=== PATIENT | male | born 1950 | race Caucasian/White ===

== ENCOUNTER 2017-02-24 08:00 | Outpatient (CLI) | payer MEDICARE, OTHER ==
[2017-02-24 13:01] LABS: BASOPHILS % (AUTO) 0.6 %; EOSINOPHILS # (AUTO) 0.5 10^3/uL (0.0-0.7); EOSINOPHILS % (AUTO) 7.1 %; HCT - HEMATOCRIT 40.2 % (42.0-52.0); HGB - HEMOGLOBIN 13.7 g/dL (14.0-18.0); LYMPHOCYTES # (AUTO) 2.4 10^3/uL (1.5-3.5); LYMPHOCYTES % (AUTO) 35.5 %; MEAN CORPUSCULAR HGB CONC 34.1 g/dL (32.0-36.0); MEAN CORPUSCULAR VOLUME 93.9 fL (80.0-94.0); MEAN PLATELET VOLUME 9.4 fL (7.4-11.4); MONOCYTES # (AUTO) 0.8 10^3/uL (0.0-1.0); MONOCYTES % (AUTO) 12.2 %; NEUTROPHILS % (AUTO) 44.6 %; NUCLEATED RED BLOOD CELLS AUTO 0.1 /100WBC; RED BLOOD COUNT 4.28 10^6/uL (4.70-6.10); RED CELL DISTRIBUTION WIDTH 14.1 % (12.0-15.0); UNCORRECTED WHITE BLOOD COUNT 6.7 x10^3/uL; WHITE BLOOD COUNT 6.7 x10^3/uL (4.8-10.8)
[2017-02-24 13:14] LABS: ALBUMIN/GLOBULIN RATIO 1.4 (1.0-2.2); BUN - BLOOD UREA NITROGEN 21 mg/dL (6-20); CALCIUM 9.2 mg/dL (8.5-10.3); CARBON DIOXIDE - CO2 27 mmol/L (21-32); CHLORIDE 104 mmol/L (101-111); CHOL/HDL RATIO 2.8 (<5.0); CHOLESTEROL 170 mg/dL; GFR - MDRD 75 (>89); GLUCOSE 94 mg/dL (70-100); HDL CHOLESTEROL 60 mg/dL; LDL/HDL RATIO 1.6 (<3.6); POTASSIUM 4.5 mmol/L (3.5-5.0); SODIUM 138 mmol/L (135-145); TOTAL PROTEIN 7.2 g/dL (6.7-8.2); TRIGLYCERIDES 62 mg/dL; VLDL CHOLESTEROL 12 mg/dL
== END 2017-02-24 08:01 | disposition home or self-care (01) ==
LOC: LAB.WCP 08:00
PROVIDERS: ATTEND Family Medicine
DX: I47.1 Supraventricular tachycardia (principal)
CPT/HCPCS: 36415; 80053; 80061; 85025; G0103; 84153

== ENCOUNTER 2017-03-26 08:38 | Outpatient (CLI) | payer MEDICARE, OTHER ==
--- NOTE | 2017-03-26 10:28 | Ultrasound Report ---
ULTRASOUND OF THE RIGHT AXILLA: 03/26/2017 CLINICAL HISTORY: A 66-year-old male who has a possible soft palpable mass in the right axilla. TECHNIQUE: Real-time scanning was performed with business banking representative static images obtained. Examination was performed both by the industrial maintenance technician and Dr. Weaver. FINDINGS: No mass was encountered in the right axilla. There was a small benign-appearing lymph nod e noted. It was oval-shaped and had a hyperechoic hilum. It is of no clinical concern. Examination is negative for a significant mass. No lipoma was seen. No other lesion was noted. Fin ding may represent mild asymmetrical hypertrophy of one of the muscles in and about the right axilla. If patient notes any increase in size of the lesion, an MRI could be obtained for further evaluatio n. IMPRESSION: NEGATIVE RIGHT AXILLARY ULTRASOUND. FINDING OF CONCERN MOST LIKELY REPRESENTS MINIMAL A SYMMETRICAL HYPERTROPHY OF ONE OF THE MUSCLES IN AND ABOUT THE RIGHT AXILLA, DISCUSSED ABOVE. JOB #: [id number] EXT JOB #:[id number]
== END 2017-03-26 08:39 | disposition home or self-care (01) ==
LOC: DI 08:38
PROVIDERS: ATTEND Family Medicine
DX: R22.9 Localized swelling, mass and lump, unspecified (principal)
CPT/HCPCS: 76882

== ENCOUNTER 2017-10-15 08:00 | Outpatient (CLI) | payer MEDICARE, OTHER ==
[2017-10-15 12:54] LABS: BASOPHILS # (AUTO) 0.1 10^3/uL (0.0-0.1); BASOPHILS % (AUTO) 1.1 %; EOSINOPHILS # (AUTO) 0.4 10^3/uL (0.0-0.7); EOSINOPHILS % (AUTO) 5.9 %; HGB - HEMOGLOBIN 15.6 g/dL (14.0-18.0); LYMPHOCYTES # (AUTO) 2.4 10^3/uL (1.5-3.5); LYMPHOCYTES % (AUTO) 36.2 %; MEAN CORPUSCULAR HEMOGLOBIN 32.2 pg (27.0-31.0); MEAN CORPUSCULAR HGB CONC 34.5 g/dL (32.0-36.0); MEAN CORPUSCULAR VOLUME 93.4 fL (80.0-94.0); MEAN PLATELET VOLUME 9.7 fL (7.4-11.4); MONOCYTES # (AUTO) 0.7 10^3/uL (0.0-1.0); MONOCYTES % (AUTO) 10.3 %; NEUTROPHILS # (AUTO) 3.1 10^3/uL (1.5-6.6); NEUTROPHILS % (AUTO) 46.5 %; PLT - PLATELET COUNT 221 10^3/uL (130-450); RED BLOOD COUNT 4.83 10^6/uL (4.70-6.10); RED CELL DISTRIBUTION WIDTH 13.3 % (12.0-15.0); WHITE BLOOD COUNT 6.6 x10^3/uL (4.8-10.8)
[2017-10-15 13:14] LABS: ALBUMIN 4.4 g/dL (3.2-5.5); ALBUMIN/GLOBULIN RATIO 1.3 (1.0-2.2); ALKALINE PHOSPHATASE 50 IU/L (42-121); ALT ALANINE AMINOTRANSFERASE 30 IU/L (10-60); AST ASPARTATE AMINOTRANSFERASE 27 IU/L (10-42); BILIRUBIN,TOTAL 0.5 mg/dL (0.2-1.0); BUN - BLOOD UREA NITROGEN 24 mg/dL (6-20); CALCIUM 9.2 mg/dL (8.5-10.3); CARBON DIOXIDE - CO2 27 mmol/L (21-32); CHLORIDE 105 mmol/L (101-111); CREATININE 1.1 mg/dL (0.6-1.2); GFR - MDRD 67 (>89); GLUCOSE 91 mg/dL (70-100); SODIUM 136 mmol/L (135-145); TOTAL PROTEIN 7.7 g/dL (6.7-8.2)
[2017-10-15 13:21] LABS: THYROID STIMULATING HORMONE 2.29 uIU/mL (0.34-5.60)
== END 2017-10-15 08:01 ==
LOC: LAB.WCP 08:00
PROVIDERS: ATTEND Family Medicine
DX: R53.83 Other fatigue (principal); K30 Functional dyspepsia; M70.72 Other bursitis of hip, left hip; M13.861 Other specified arthritis, right knee; M25.571 Pain in right ankle and joints of right foot; R25.1 Tremor, unspecified; R41.3 Other amnesia; D48.5 Neoplasm of uncertain behavior of skin; I71.2 Thoracic aortic aneurysm, without rupture; G47.9 Sleep disorder, unspecified; I42.9 Cardiomyopathy, unspecified; I47.1 Supraventricular tachycardia
CPT/HCPCS: 36415; 80053; 82607; 83921; 84443; 85025

== ENCOUNTER 2017-10-23 09:00 | Outpatient (CLI) | payer MEDICARE, OTHER ==
[2017-10-26 12:03] LABS: H. PYLORIS ANTIGEN STL NEGATIVE (Negative)
== END 2017-10-23 09:01 | disposition home or self-care (01) ==
LOC: LAB.R 09:00
PROVIDERS: ATTEND Family Medicine
DX: K30 Functional dyspepsia (principal)
CPT/HCPCS: 87338

== ENCOUNTER 2018-01-10 19:38 | Outpatient (CLI) | payer MEDICARE, OTHER | END 2018-01-10 19:39 | disposition home or self-care (01) | LOC: SC 19:38 | PROVIDERS: ATTEND Internal Medicine Pulmonary Disease | DX: G47.31 Primary central sleep apnea (principal); G47.33 Obstructive sleep apnea (adult) (pediatric); G47.61 Periodic limb movement disorder | CPT/HCPCS: 95810 ==

== ENCOUNTER 2018-02-15 09:13 | Outpatient (CLI) | payer MEDICARE, OTHER | END 2018-02-15 09:14 | disposition home or self-care (01) | LOC: SC 09:13 | PROVIDERS: ATTEND Nurse Practitioner Family | DX: G47.31 Primary central sleep apnea (principal); G47.61 Periodic limb movement disorder; I49.9 Cardiac arrhythmia, unspecified | CPT/HCPCS: 99215 ==

== ENCOUNTER 2018-06-30 14:02 | Outpatient (CLI) | payer MEDICARE, OTHER | END 2018-06-30 14:03 | disposition home or self-care (01) | LOC: SC 14:02 | PROVIDERS: ATTEND Nurse Practitioner Family | DX: G47.31 Primary central sleep apnea (principal); G47.33 Obstructive sleep apnea (adult) (pediatric) | CPT/HCPCS: 99215; G0463; 99212 ==

== ENCOUNTER 2018-08-02 09:47 | Outpatient (CLI) | payer MEDICARE, OTHER | END 2018-08-02 09:48 | disposition home or self-care (01) | LOC: SC 09:47 | PROVIDERS: ATTEND Nurse Practitioner Family | DX: G47.31 Primary central sleep apnea (principal); G47.33 Obstructive sleep apnea (adult) (pediatric) | CPT/HCPCS: 99214; G0463; 99212 ==

== ENCOUNTER 2018-09-02 10:43 | Outpatient (CLI) | payer MEDICARE, OTHER | END 2018-09-02 10:44 | disposition home or self-care (01) | LOC: SC 10:43 | PROVIDERS: ATTEND Nurse Practitioner Family | DX: G47.33 Obstructive sleep apnea (adult) (pediatric) (principal) | CPT/HCPCS: 99214; G0463; 99212 ==

== ENCOUNTER 2018-09-13 19:32 | Outpatient (CLI) | payer MEDICARE, OTHER | END 2018-09-13 19:33 | disposition home or self-care (01) | LOC: SC 19:32 | PROVIDERS: ATTEND Internal Medicine Pulmonary Disease | DX: G47.33 Obstructive sleep apnea (adult) (pediatric) (principal) | CPT/HCPCS: 95811 ==

== ENCOUNTER 2018-09-16 08:00 | Outpatient (CLI) | payer MEDICARE, OTHER ==
[2018-09-16 13:17] LABS: BASOPHILS # (AUTO) 0.1 10^3/uL (0.0-0.1); BASOPHILS % (AUTO) 0.9 %; EOSINOPHILS # (AUTO) 0.3 10^3/uL (0.0-0.7); EOSINOPHILS % (AUTO) 4.3 %; HGB - HEMOGLOBIN 16.4 g/dL (14.0-18.0); LYMPHOCYTES # (AUTO) 2.2 10^3/uL (1.5-3.5); LYMPHOCYTES % (AUTO) 29.6 %; MEAN CORPUSCULAR HEMOGLOBIN 31.9 pg (27.0-31.0); MEAN CORPUSCULAR HGB CONC 33.8 g/dL (32.0-36.0); MEAN CORPUSCULAR VOLUME 94.4 fL (80.0-94.0); MEAN PLATELET VOLUME 10.1 fL (7.4-11.4); MONOCYTES # (AUTO) 0.8 10^3/uL (0.0-1.0); NEUTROPHILS % (AUTO) 54.2 %; PLT - PLATELET COUNT 238 10^3/uL (130-450); RED BLOOD COUNT 5.14 10^6/uL (4.70-6.10); RED CELL DISTRIBUTION WIDTH 14.2 % (12.0-15.0); WHITE BLOOD COUNT 7.4 x10^3/uL (4.8-10.8)
[2018-09-16 13:44] LABS: ALBUMIN 4.3 g/dL (3.2-5.5); ALBUMIN/GLOBULIN RATIO 1.3 (1.0-2.2); ALKALINE PHOSPHATASE 55 IU/L (42-121); ALT ALANINE AMINOTRANSFERASE 18 IU/L (10-60); AST ASPARTATE AMINOTRANSFERASE 19 IU/L (10-42); BILIRUBIN,TOTAL 0.9 mg/dL (0.2-1.0); BUN - BLOOD UREA NITROGEN 26 mg/dL (6-20); CARBON DIOXIDE - CO2 28 mmol/L (21-32); CHLORIDE 101 mmol/L (101-111); CHOL/HDL RATIO 2.5 (<5.0); CHOLESTEROL 175 mg/dL; CREATININE 1.1 mg/dL (0.6-1.2); GFR - MDRD 67 (>89); GLUCOSE 90 mg/dL (70-100); HDL CHOLESTEROL 70 mg/dL; LDL CHOLESTEROL,CALCULATED 96 mg/dL; LDL/HDL RATIO 1.4 (<3.6); SODIUM 136 mmol/L (135-145); TOTAL PROTEIN 7.5 g/dL (6.7-8.2); VLDL CHOLESTEROL 9 mg/dL
== END 2018-09-16 23:59 | disposition home or self-care (01) ==
LOC: LAB.WCP 08:00
PROVIDERS: ATTEND Family Medicine
DX: E78.5 Hyperlipidemia, unspecified (principal); Z12.5 Encounter for screening for malignant neoplasm of prostate; R53.83 Other fatigue
CPT/HCPCS: 36415; 80053; 80061; 84443; 85025; G0103; 83721; 84153

== ENCOUNTER 2018-10-18 06:13 | Outpatient (CLI) | payer MEDICARE, OTHER | END 2018-10-18 06:14 | disposition critical access hospital (66) | LOC: EMS 06:13 | PROVIDERS: ATTEND Surgery | DX: K59.00 Constipation, unspecified (principal) | CPT/HCPCS: A0425; A0429 ==

== ENCOUNTER 2018-10-18 06:33 | Inpatient (IN) | payer MEDICARE, OTHER ==
[2018-10-18] MEDS ORDERED: SALINE ENEMA 133 ML BOTTLE RC STA (07:33)
[2018-10-18] MEDS ORDERED: METHYLNALTREXONE 12 MG/0.6 ML VIAL SUBQ ONE ×2 (07:38→07:40)
[2018-10-18] MEDS ORDERED: oxyCODONE 5 MG TABLET PO STA (07:46)
[2018-10-18 07:54] LABS: BASOPHILS # (AUTO) 0.1 10^3/uL (0.0-0.1); BASOPHILS % (AUTO) 0.7 %; EOSINOPHILS # (AUTO) 0.3 10^3/uL (0.0-0.7); EOSINOPHILS % (AUTO) 3.3 %; HGB - HEMOGLOBIN 10.8 g/dL (14.0-18.0); LYMPHOCYTES # (AUTO) 1.2 10^3/uL (1.5-3.5); LYMPHOCYTES % (AUTO) 12.8 %; MEAN CORPUSCULAR HGB CONC 33.8 g/dL (32.0-36.0); MEAN CORPUSCULAR VOLUME 94.9 fL (80.0-94.0); MONOCYTES # (AUTO) 0.9 10^3/uL (0.0-1.0); MONOCYTES % (AUTO) 9.4 %; NEUTROPHILS % (AUTO) 73.8 %; PLT - PLATELET COUNT 273 10^3/uL (130-450); RED BLOOD COUNT 3.36 10^6/uL (4.70-6.10); RED CELL DISTRIBUTION WIDTH 13.9 % (12.0-15.0); WHITE BLOOD COUNT 9.4 x10^3/uL (4.8-10.8)
[2018-10-18 07:59] LABS: CALCIUM 8.9 mg/dL (8.5-10.3)
--- NOTE | 2018-10-18 08:00 | ED Physician Documentation ---
History of Present Illness - Stated complaint Stated Complaint: CONSTIPATION - Chief complaint Chief Complaint: Abd Pain - Additonal information Additional information: hx from pt and 67 male s/p right total knee 6 days ago at [facility] to ER with several concerns primarily here for constipation believed 2/2 his narcotics he has crampy lower abd pain he tried disimpacting himself as far up as he could reach he has cp soa cough congestion and hemoptysis is not on post op Lovenox he is acting aggressive and angry and a bit confused which is atypical for him and attributes to the meds no fever no NA no urinary sx Review of Systems Constitutional: denies: Fever, Chills Cardiac: reports: Chest pain / pressure Respiratory: reports: Dyspnea, Cough GI: reports: Abdominal Pain, Constipation. denies: Nausea, Vomiting Musculoskeletal: reports: Extremity pain (post op). denies: Neck pain, Back pain Neurologic: denies: Headache Endocrine: denies: Easy bruising / bleeding Immunocompromised: denies: Immunocompromised PD PAST MEDICAL HISTORY - Past Medical History Past Medical History: Yes Cardiovascular: High cholesterol - Past Surgical History Past Surgical History: Yes - Present Medications Home Medications: Ambulatory Orders Medication Instructions Recorded Confirmed Atorvastatin Calcium [Lipitor] 20 mg PO DAILY 04/07/15 10/18/18 Carvedilol [Coreg] 6.25 mg PO DAILY 04/07/15 10/18/18 Celecoxib [CeleBREX] 200 mg PO BID 10/18/18 10/18/18 Losartan Potassium 25 mg PO DAILY 10/18/18 10/18/18 Oxycodone HCl/Acetaminophen 1 tab PO Q4H PRN 10/18/18 10/18/18 [Percocet 10-325 mg Tablet] hydrOXYzine pamoate [Hydroxyzine 25 mg PO TID PRN 10/18/18 10/18/18 Pamoate] traMADol [Ultram] 50 mg PO Q6H PRN 10/18/18 10/18/18 - Allergies Allergies/Adverse Reactions: Allergies Allergy/AdvReac Type Severity Reaction Status Date / Time No Known Drug Allergies Allergy Verified 10/18/18 06:43 - Social History Does the pt smoke?: No Smoking Status: Never smoker Does the pt drink ETOH?: Yes Does the pt have substance abuse?: No - Immunizations Immunizations are current?: No Immunizations: TDAP >10years/unknown - POLST Patient has POLST: No PD ED PE NORMAL - Vitals Vital signs reviewed: Yes - General General: Alert and oriented X 3 - HEENT HEENT: PERRL - Neck Neck: Supple, no meningeal sign - Cardiac Cardiac: RRR - Respiratory Respiratory: Other (coare cough lungs clear) - Abdomen Abdomen: Soft, Other (lower abd TTP s peritoneal sx) - Male Male : Deferred - Derm Derm: Normal color - Extremities Extremities: Other (both legs in compression stockings) - Neuro Neuro: Alert and oriented X 3, Other ( states not acting normally but he is able to carry on a conversation) Results - Vitals Vitals: Vital Signs - 24 hr 10/18/18 10/18/18 06:41 09:27 Temperature 36.2 C L Heart Rate 83 86 Respiratory 18 22 Rate Blood Pressure 147/81 H 132/77 H O2 Saturation 97 97 Oxygen O2 Source Room air - EKG (time done) 0759 Rate: Rate (enter#) (79) Rhythm: NSR [place]: Normal Intervals: Normal ME Ischemia: Normal ST segments - Labs Labs: Laboratory Tests 10/18/18 10/18/18 10/18/18 07:40 07:40 08:40 WBC 9.4 RBC 3.36 L Hgb 10.8 L Hct 31.9 L MCV 94.9 H MCH 32.0 H MCHC 33.8 RDW 13.9 Plt Count 273 MPV 8.0 Neut # (Auto) 7.0 H Lymph # (Auto) 1.2 L [place] # (Auto) 0.9 Eos # (Auto) 0.3 Baso # (Auto) 0.1 Absolute Nucleated RBC 0.00 Nucleated RBC % 0.0 Sodium 133 L Potassium 4.2 Chloride 100 L Carbon Dioxide 23 Anion Gap 10.0 BUN 26 H Creatinine 1.0 Estimated GFR (MDRD) 74 L Glucose 105 H Calcium 8.9 Urine Color YELLOW Urine Clarity CLEAR Urine pH 6.0 Ur Specific [place] 1.015 Urine Protein NEGATIVE Urine Glucose (UA) NEGATIVE Urine Ketones TRACE Urine Occult Blood NEGATIVE Urine Nitrite NEGATIVE Urine Bilirubin NEGATIVE Urine Urobilinogen 0.2 (NORMAL) Ur Leukocyte Esterase NEGATIVE Ur Microscopic Review NOT INDICATED Urine Culture Comments NOT INDICATED - Rads (name of study) CTPA Radiology: See rad report (suboptimal contrast timing but per rad CT shos PEs vida lower lobes and infiltrate or infarct RLL - and also a 4 cm AAA, and a small calcified spleen) PD MEDICAL DECISION MAKING - ED course ED course: + PE (at least highly probable on suboptimal CT in a pt with a high pretest probability) gave jose PE severity index score is 138 (counting report of not acting normally as AMS) which is class V high risk called hospitalist for admit at [address] Arnold at 1030 AM also updated ortho Dr Butler and he had large BM after meds in ER Departure - Departure Disposition: ED Place in Observation Clinical Impression: Constipation Pulmonary emboli Qualifiers: Pulmonary embolism type: other Chronicity: acute Acute cor pulmonale presence: without acute cor pulmonale Qualified Code(s): I26.99 - Other pulmonary embolism without acute cor pulmonale Condition: Fair Discharge Date/Time: 10/18/18 11:30
[2018-10-18] MEDS ORDERED: IOVERSOL 320 100 ML VIAL IVP ONE ×2 (08:03→08:42)
--- NOTE | 2018-10-18 09:14 | CT Report ---
Reason: cp soa hemoptysis s/p total knee Procedure Date: 10/18/2018 Accession Number: [id number] / [id number] Procedure: CT - Chest Angio (PE) CPT Code: FULL RESULT: EXAM: CT ANGIOGRAM CHEST EXAM DATE: 10/18/2018 08:40 AM. CLINICAL HISTORY: Cp soa hemoptysis s/p total knee. COMPARISON: None. TECHNIQUE: Routine helical imaging was performed through the chest in the pulmonary arterial phase. IV Contrast: [id number] 80ML. Reconstructions: Coronal 3-D MIP reconstructions.Sagittal and coronal. In accordance with CT protocol optimization, one or more of the following dose reduction techniques were utilized for this exam: automated exposure control, adjustment of mA and/or KV based on patient size, or use of iterative reconstructive technique. FINDINGS: Pulmonary Arteries: Diagnostic quality: Suboptimal through the segmental arteries. Contrast enhancement is not optimal. Probable emboli in the right lower lobe segmental arteries. Probable emboli left lower lobe segmental arteries. RV/LV is within normal limits. There is no interventricular septal bowing. There is no reflux of contrast material in the IVC. Lungs/Pleura: Area of consolidation or infarct right lower lobe posterior segment. By basilar atelectasis. Mediastinum: Cardiomegaly. No pericardial effusion. No significant adenopathy. Coronary artery calcifications. Thoracic Aorta: Enlarged 4.1 cm Upper Abdomen: Small spleen with calcifications Other: None. IMPRESSION: 1. Probable pulmonary emboli and right lower lobe and left lower lobe segmental arteries. Contrast enhancement was not optimal. 2. Infiltrate or infarct in right lower lobe posterior segment. 3. Ascending aortic aneurysm 4.1 cm. 4. Small spleen with calcifications RADIA The above findings were discussed with Keisha Neville by Dr. Alondra Castillo at 09:13 hrs on 10/18/18.
[2018-10-18 09:33] LABS: BILIRUBIN,URINE NEGATIVE (NEGATIVE); GLUCOSE, URINE (UA) NEGATIVE (NEGATIVE); KETONES,URINE (UA) TRACE mg/dL (NEGATIVE); LEUKOCYTE ESTERASE, URINE NEGATIVE (NEGATIVE); NITRITE,URINE NEGATIVE (NEGATIVE); OCCULT BLOOD,URINE NEGATIVE (NEGATIVE); PROTEIN,URINE NEGATIVE (NEGATIVE); UROBILINOGEN,URINE 0.2 (NORMAL) E.U./dL (NORMAL)
[2018-10-18 09:34] LABS: CLARITY,URINE CLEAR (CLEAR)
[2018-10-18] MEDS ORDERED: ENOXAPARIN 100 MG/ML SYRINGE SUBQ STA (09:40)
[2018-10-18] MEDS ORDERED: ONDANSETRON ODT 4 MG TABLET TL PRN (10:38)
[2018-10-18] MEDS ORDERED: ONDANSETRON 4 MG/2 ML VIAL IVP PRN (10:38)
--- NOTE | 2018-10-18 10:56 | HISTORY & PHYSICAL EXAMINATION ---
Chief Complaint - Chief Complaint Chief Complaint: Constipation History of Present Illness - Admitted From Admitted From:: Home/ER - History Obtained From Records Reviewed: [facility] History obtained from: Patient, , Dr. 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 Butler 6 days ago. He comes in because of medicines he has been using for pain relief and have given him constipation and is miserable with it. However, while discussing this with the ER doctor, a review of systems was done and he discusses cough, shortness of breath, hemoptysis. He keeps on telling me that he does not have chest pain. There is no sharp pleuritic stabbing pain. He is a little worried because he feels like "I got dementia this week". He cannot think clearly. He cannot speak clearly. And he is utterly, early measurable with the right knee pain, right thigh pain, and the constipation. He says the pain and discomfort is so bad he just cannot think straight. On his med list there is no postoperative anticoagulation. His temperature was 36.2, pulse 83, blood pressure 147/81, respirations 18 and is 97% on room air. He has no history of cancer, COPD, but his altered mental status is concerning. describes him to be belligerent, personality change after surgery that she attributed to the medications. CT of the chest with angiogram reveals pulmonary emboli in the right lower lobe and left lower lobe segmental arteries. Infiltrate or infarct in the right lower lobe posterior s egment. A sending aortic aneurysm of 4.1 cm. Small spleen with calcifications. Pulmonary embolism severity index is positive for male sex with 10 points, age gives him 68 points, and altered mental status given 60 points. CHF may or may not need to be added to that as well but with the three scoring criteris, his total score is 138. That puts him at a class V, high risk. He is now placed in observation for telemetry monitoring, and starting his anticoagulation. History - Past Medical History Cardiovascular: reports: Congestive heart failure (Idiopathic cardiomyopathy. EF 50% Echo 10/17, 50% 11/2013, 55% 12/2014, 50% 04/20, 50% 09/21.Moderate AI with Thoracic A.), High cholesterol, Coronary artery disease (stress test neg ), Arrhythmia (short bursts of SVT as well as sinus bradycardia) Respiratory: reports: Sleep apnea (Severe central and obstructive sleep apneahypercapnia of 30.4 associated with frequent oxyhemoglobin desaturations and mild hypoxia, sadaf 84%. Mild periodic limb movement of sleep. Nasal CPAP therapy.) Neuro: reports: None Endocrine/Autoimmune: reports: None GI: reports: None : reports: None HEENT: reports: None Psych: reports: None Musculoskeletal: reports: Osteoarthritis, Other (Shoulder separation, 1982) Derm: reports: Other drug resistant infections (MRSA infection with hospitalization for a week and 2003), Other (stasis dermatitis by venous insufficiency) MRSA Hx?: No - Past Surgical History Ortho: reports: Knee replacement (POD #6 today), Shoulder arthroplasty - Family & Social History Family History Comment/Other: Father at age 89 of TIAs and had a pacemaker. Mother is alive at age 92, hx of breast and thyroid cancer. 2 brothers and 4 sisters healthy. no cancer, no HTN, no CAD, no hx of blood clots. No children Living arrangement: At home Living Situation: With spouse/s.o. Social History Notes: Born and raised in [place]. 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 Ended up at [facility] because of his career. And has been here ever since. to his first . They live in their own home and are completely independent.He stopped smoking in 1969. He said that he smokes a little bit his freshman year of college and could not believe how nasty it was and stopped almost as soon as he started. He Told his primary care provider when he first met him years ago that he drank 4-6 drinks a day. Currently drinks 3 ounces a day. He usually stops for Lent and gives it up through [facility]. His last drink was 2 weeks ago. He is never gone through withdrawal. - Substance History Use: Uses substance without health or social issues: Alcohol Abuse: Recurrent use of substance despite neg consequences: NONE Dependence: Experiences withdrawal or developed tolerances: NONE - POLST Patient has POLST: No POLST Status: Full Code Meds/Allgy - Home Medications Home Medications: Ambulatory Orders Medication Instructions Recorded Confirmed Atorvastatin Calcium [Lipitor] 20 mg PO DAILY 04/07/15 10/18/18 Carvedilol [Coreg] 6.25 mg PO DAILY 04/07/15 10/18/18 Celecoxib [CeleBREX] 200 mg PO BID 10/18/18 10/18/18 Oxycodone HCl/Acetaminophen 1 tab PO Q4H PRN 10/18/18 10/18/18 [Percocet 10-325 mg Tablet] RX: Losartan Potassium 25 mg PO DAILY 10/18/18 10/18/18 RX: hydrOXYzine pamoate 25 mg PO TID PRN 10/18/18 10/18/18 [Hydroxyzine Pamoate] traMADol [Ultram] 50 mg PO Q6H PRN 10/18/18 10/18/18 - Allergies Allergies/Adverse Reactions: Allergies Allergy/AdvReac Type Severity Reaction Status Date / Time No Known Drug Allergies Allergy Verified 10/18/18 06:43 Review of Systems - Constitutional Constitutional: reports: Fatigue (just kicking his but for the last few months. Cardiology says his heart is ok.). denies: Fever, Chills, Malaise, Weakness, Poor appetite, Diaphoresis - Eyes Eyes: denies: Pain, Irritation, Amaurosis, Blurred vision, Vision loss - Ears, Nose & Throat Ears, Nose & Throat: reports: Hearing loss. denies: Ear pain, Hearing aids, Vertigo, Nasal obstruction, Nasal congestion, Postnasal drainage, Dentures - Cardiovascular Cariovascular: reports: Edema (chronic and mostly one leg), Lightheadedness (last 2 weeks that he attributed to his heart), Decr. exercise tolerance (he attributes it to his knee pain and he has been doing less and less). denies: Irregular heart rate, Palpitations, Chest pain, Syncope, Exertional dyspnea - Respiratory Respiratory: reports: Cough (last few days), Hemoptysis (last few days), SOB at rest - Gastrointestinal Gastrointestinal: reports: Abdominal distention, Constipation, Change in bowel habits, Nausea, Reflux/heartburn, Bloating, Poor appetite. denies: Abdominal pain, Diarrhea, Rectal bleeding, Black stools, Bloody stools, Vomiting, Bile emesis, Meet blood emesis, Coffee grounds emesis - Genitourinary Genitourinary: denies: Dysuria, Frequency, Urgency, Hematuria, Incontinence, Fla nk pain, Nocturia - Musculoskeletal Musculoskeletal: reports: Muscle pain (right thigh, severe), Stiffness (right knee), Limited range of motion (right knee), Joint pain (right knee, severe) - Integumentary Integumentary: denies: Rash, Pruritis, Lesions, Dryness, Acne - Neurological Neurological: reports: General weakness, Memory problems - Psychiatric Psychiatric: reports: Depression (right now. he bursts into tears and says he doesn't know how much more pain he can take from the knee and thigh. Adamant he is NOT have chest pain) - Endocrine Endocrine: denies: Polyuria, Polydypsia - Hematologic/Lymphatic Hematologic/Lymphatic: denies: Anemia, Bruising, Petechiae Prior Level of Functionality: He was independent with his activities of daily living until he had the knee surgery 6 days ago. His mobility was definitely reducing his exercising. He is getting more more tired, spending more more time incidentally. He felt like he was losing ground in his life. He was hoping that this knee replacement would then allow him less pain to be more active. But he still drives, pays the bills, dresses himself, feed himself, etc. Did not use any durable medical equipment at home until the knee replacement. This current situation has certainly thrown him for a loop, and is completely dependent on his for help and is put a big strain on their marriage. He says that he is not been a very nice person, and his is been reduced to tears at times.But then he goes on to defend himself and say "she just does not understand" Exam - Vital Signs Reviewed Vital Signs: Yes Vital Signs: Vital Signs x48h Temp Pulse Resp BP Pulse Ox 10/18/18 09:27 86 22 132/77 H 97 10/18/18 06:41 36.2 C L 83 18 147/81 H 97 - Physical Exam General Appearance: positive: Severe distress (Tearful, intermittently moans and cries out and grabs his right knee from pain as he sits with his leg elevated in the bed), Other (Slight agitation, constantly moving, constantly shifting in the bed back and forth trying to find a comfortable position. Diaphoretic with flushed cheeks. Having word finding difficulty at times and feels like he is going crazy.) Eyes Bilateral: positive: PERRL, Other (Sclera injected) ENT: positive: Pharynx nml Neck: positive: No JVD. negative: Stiff neck, Carotid bruit Respiratory: positive: Chest non-tender, Rhonchi. negative: Wheezes, Rales Cardiovascular: positive: Regular rate & rhythm. negative: JVD present, Systolic murmur, Gallop/S4, Friction rub Peripheral Pulses: positive: 1+ Abdomen: positive: Non-tender, No organomegaly, Nml bowel sounds, Other (Slight distention, but nontender. Easy ballottement.). negative: Guarding, Rebound Skin: positive: Warm, Diaphoresis Extremities: positive: Other (The right knee has a bandage on it, still and closed in the flesh-colored compression wrap. Painful right thigh up into groin, but no redness or heat. The calf is also painful to touch but no redness or heat. Knee is in a flexed position on the pillow. Left leg normal. No clubbing cyanosis. Trace edema left ankle, 1+ edema right ankle.) Neurologic/Psychiatric: positive: Oriented x3, CN's nml (2-12), Motor nml, Depressed mood/affect, Other (At times, the pain spasms take his thought process away. He loses his train of thought in mid sentence, and has to struggle to remember what he was saying or struggle to find some words. Then the pain will down he can have normal speech again.) Conclusion/Plan - Problem List (1) Pulmonary emboli Conclusion/Plan: Risk factors include chronic venous stasis, relatively sedentary lifestyle that is been sharply diminished over the last few weeks if not the last 6 days, and orthopedic procedure. He does not have a history of malignancy. He is not on any medications that would provoke this. Plan: Observation stay Telemetry overnight Lovenox given in ER Start Xarelto 15 mg p.o. twice daily Morphine to control the pain in his leg. Qualifiers: Pulmonary embolism type: other Chronicity: acute Acute cor pulmonale presence: without acute cor pulmonale Qualified Code(s): I26.99 - Other pulmonary embolism without acute cor pulmonale (2) Postoperative pain of knee Conclusion/Plan: While some of this is postsurgical pain in the joint, I do believe that the DVT that is most likely in his right leg is painful into his groin and thigh. At home is been on tramadol and oxycodone. I cannot give him any nonsteroidals at this point. Plan: Robaxin p.o. IV morphine while here (3) Obstructive sleep apnea hypopnea, severe Conclusion/Plan: With central sleep apnea. This is going to make treating his pain a little difficult and I am going to have to be careful with the morphine, Robaxin, and any sedative I may give him. His central sleep apnea will get worse. Sedation will then make his obstructive sleep apnea worse. Plan: will be bringing CPAP machine On telemetry Continuous pulse oximeter (4) Idiopathic cardiomyopathy Conclusion/Plan: Being followed by cardiology on a regular basis. He was just seen prior to his knee replacement and was felt stable from his cardiac status. Is not due to be seen for another year. He is on carvedilol, no diuretic. Plan: Resume carvedilol Check BNP and if elevated give a dose of diuretics. He is not hypoxic. (5) Acute blood loss as cause of postoperative anemia Conclusion/Plan: Status post knee replacement. At this time he does not meet criteria for transfusion. Not hypoxic, not tachycardic. He will need to be monitored because he is being placed on Xarelto. Repeat CBC tomorrow morning. (6) Agitation Conclusion/Plan: I would speak to his about his baseline status. Even he is recognizing that he is not himself. He cannot get comfortable, crying, moving back and forth on the bed. My supposition is that he has pain, and side effects of the p ulmonary infarct, and I will use a very low dose of Ativan. I will also try and control the pain. But again need to keep in mind that he has central sleep apnea as well as obstructive sleep apnea and I want to avoid excessive sedation. If I can get him calm enough, CT head. - Lab Results Fish Bones: 10/18/18 07:40 10/18/18 07:40 - Diagnostic Imaging Results Diagnostic Imaging Results: positive: Final report reviewed Diagnostic Imaging Results Comments: CT ANGIOGRAM CHEST EXAM DATE: 10/18/2018 08:40 AM. CLINICAL HISTORY: Cp soa hemoptysis s/p total knee. COMPARISON: None. TECHNIQUE: Routine helical imaging was performed through the chest in the pulmonary arterial phase. IV Contrast: [id number] 80ML. Reconstructions: Coronal 3-D MIP reconstructions.Sagittal and coronal. In accordance with CT protocol optimization, one or more of the following dose reduction techniques were utilized for this exam: automated exposure control, adjustment of mA and/or KV based on patient size, or use of iterative reconstructive technique. FINDINGS: Pulmonary Arteries: Diagnostic quality: Suboptimal through the segmental arteries. Contrast enhancement is not optimal. Probable emboli in the right lower lobe segmental arteries. Probable emboli left lower lobe segmental arteries. RV/LV is within normal limits. There is no interventricular septal bowing. There is no reflux of contrast material in the IVC. Lungs/Pleura: Area of consolidation or infarct right lower lobe posterior segment. By basilar atelectasis. Mediastinum: Cardiomegaly. No pericardial effusion. No significant adenopathy. Coronary artery calcifications. Thoracic Aorta: Enlarged 4.1 cm Upper Abdomen: Small spleen with calcifications Other: None. IMPRESSION: 1. Probable pulmonary emboli and right lower lobe and left lower lobe segmental arteries. Contrast enhancement was not optimal. 2. Infiltrate or infarct in right lower lobe posterior segment. 3. Ascending aortic aneurysm 4.1 cm. 4. Small spleen with calcifications - EKG Results EKG Interpreted Independently: No EKG Findings: NSR with abnormal R wave progression, early R in V2. LH by voltage. Core Measures - Anticipated LOS I expect patient to be DC'd or transferred within 96 hours.: Yes - DVT/VTE - Prophylaxis VTE/DVT Device ordered at admit?: Yes
[2018-10-18] MEDS: ATORVASTATIN 10 MG TABLET PO SCH (12:43)
[2018-10-18] MEDS: CARVEDILOL 3.125 MG TABLET PO SCH (12:43)
[2018-10-18] MEDS: MORPHINE 2 MG/ML CARPUJECT IVP PRN ×2 (13:53→17:21)
[2018-10-18] MEDS ORDERED: LORazepam 2 MG/ML VIAL IVP PRN ×2 (13:54→18:17)
[2018-10-18] MEDS: SODIUM CHLORIDE FLUSH 0.9% 10 ML SYRINGE IVP PRN ×3 (13:54→20:44)
[2018-10-18] MEDS: oxyCODONE 5 MG TABLET PO PRN (14:58)
[2018-10-18] MEDS: SODIUM CHLORIDE FLUSH 0.9% 10 ML SYRINGE IVP SCH (17:22)
[2018-10-18] MEDS ORDERED: MORPHINE 2 MG/ML CARPUJECT IVP PRN (18:17)
[2018-10-18] MEDS ORDERED: HALOPERIDOL 5 MG/ML VIAL IVP ONE (18:18)
[2018-10-18] MEDS: ACETAMINOPHEN 325 MG TABLET PO PRN (19:04)
--- NOTE | 2018-10-18 20:19 | CT Report ---
Reason: altered mental status in a PE pt Procedure Date: 10/18/2018 Accession Number: [id number] / [id number] Procedure: CT - Head W/O CPT Code: FULL RESULT: EXAM: CT HEAD EXAM DATE: 10/18/2018 07:31 PM. CLINICAL HISTORY: Altered mental status. COMPARISON: None. TECHNIQUE: Multiaxial CT images were obtained from the foramen magnum to the vertex. Reformats: Sagittal and coronal. IV contrast: None. In accordance with CT protocol optimization, one or more of the following dose reduction techniques were utilized for this exam: automated exposure control, adjustment of mA and/or KV based on patient size, or use of iterative reconstructive technique. FINDINGS: Normal brain volume for age. No acute hemorrhage, stroke or hydrocephalus. No acute sinus or mastoid disease. Intact calvarium. Probable TMJ DJD on the right. IMPRESSION: No CT evidence for acute intracranial abnormality. RADIA
[2018-10-18] MEDS ORDERED: RIVAROXABAN 15 MG TABLET PO SCH (21:00)
[2018-10-18] MEDS ORDERED: ZOLPIDEM 5 MG TABLET PO PRN (22:32)
[2018-10-19] MEDS: SODIUM CHLORIDE FLUSH 0.9% 10 ML SYRINGE IVP SCH ×4 (00:34→23:53)
[2018-10-19] MEDS ORDERED: HALOPERIDOL 5 MG/ML VIAL IVP ONE (00:55)
[2018-10-19] MEDS ORDERED: HALOPERIDOL 5 MG/ML VIAL IVP PRN (00:57)
[2018-10-19] MEDS ORDERED: HALOPERIDOL 5 MG/ML VIAL IM SCH (01:05)
[2018-10-19] MEDS ORDERED: LORazepam 2 MG/ML VIAL IM PRN ×2 (01:33→14:03)
[2018-10-19] MEDS ORDERED: LORazepam 2 MG/ML VIAL IVP PRN ×3 (01:34→13:12)
[2018-10-19] MEDS ORDERED: SODIUM CHLORIDE 0.9% 1,000 ML IV SCH (02:00)
[2018-10-19] MEDS ORDERED: HALOPERIDOL 5 MG/ML VIAL IM PRN ×2 (08:02→10:06)
[2018-10-19 08:49] LABS: BASOPHILS # (AUTO) 0.1 10^3/uL (0.0-0.1); BASOPHILS % (AUTO) 0.9 %; EOSINOPHILS # (AUTO) 0.1 10^3/uL (0.0-0.7); EOSINOPHILS % (AUTO) 0.9 %; HGB - HEMOGLOBIN 10.5 g/dL (14.0-18.0); LYMPHOCYTES # (AUTO) 1.4 10^3/uL (1.5-3.5); LYMPHOCYTES % (AUTO) 14.4 %; MEAN CORPUSCULAR HGB CONC 34.6 g/dL (32.0-36.0); MEAN CORPUSCULAR VOLUME 92.3 fL (80.0-94.0); MEAN PLATELET VOLUME 7.8 fL (7.4-11.4); MONOCYTES # (AUTO) 0.9 10^3/uL (0.0-1.0); MONOCYTES % (AUTO) 9.7 %; NEUTROPHILS % (AUTO) 74.1 %; PLT - PLATELET COUNT 319 10^3/uL (130-450); RED BLOOD COUNT 3.29 10^6/uL (4.70-6.10); RED CELL DISTRIBUTION WIDTH 14.1 % (12.0-15.0); WHITE BLOOD COUNT 9.4 x10^3/uL (4.8-10.8)
[2018-10-19] MEDS: oxyCODONE 5 MG TABLET PO PRN (08:54)
[2018-10-19] MEDS: CARVEDILOL 3.125 MG TABLET PO SCH (08:54)
[2018-10-19] MEDS: RIVAROXABAN 15 MG TABLET PO SCH ×2 (08:54→17:25)
[2018-10-19] MEDS: ATORVASTATIN 10 MG TABLET PO SCH (08:54)
[2018-10-19] MEDS: POLYETHYLENE GLYCOL 3350 17 GM PACKET PO SCH (08:54)
[2018-10-19 09:15] LABS: MAGNESIUM 2.2 mg/dL (1.7-2.8); PHOSPHORUS 2.4 mg/dL (2.5-4.6)
[2018-10-19 09:21] LABS: ALBUMIN 3.6 g/dL (3.2-5.5); ALBUMIN/GLOBULIN RATIO 0.9 (1.0-2.2); BILIRUBIN,TOTAL 1.6 mg/dL (0.2-1.0); CALCIUM 9.1 mg/dL (8.5-10.3); CREATININE 0.8 mg/dL (0.6-1.2); TOTAL PROTEIN 7.6 g/dL (6.7-8.2)
[2018-10-19 11:04] LABS: MUDS CUTOFF CONCENTRATIONS CUTOFF CONC BELOW:
[2018-10-19 11:20] LABS: AMPHETAMINE SCREEN,URINE NEGATIVE (NEGATIVE); BENZODIAZEPINES SCREEN, URINE POSITIVE (NEGATIVE); COCAINE SCREEN URINE NEGATIVE (NEGATIVE); METHADONE SCREEN, URINE NEGATIVE (NEGATIVE); METHAMPHETAMINES SCREEN, URINE NEGATIVE (NEGATIVE); OPIATE SCREEN, URINE POSITIVE (NEGATIVE); OXYCODONE SCREEN, URINE POSITIVE (NEGATIVE); PROPOXYPHENE SCREEN, URINE NEGATIVE (NEGATIVE); TRICYCLIC ANTIDEPRESSANT,URINE NEGATIVE (NEGATIVE)
--- NOTE | 2018-10-19 12:40 | PROVIDER PROGRESS NOTE ---
Assessment/Plan - Problem List (1) Acute delirium Assessment/Plan: The patient became confused then belligerent, after being placed in Observation. Head CT was neg for any acute findings. The denies that he used any alcohol for the past 1 week. She described that he had intermittent anxiety and paranoia, ever since starting the Oxycodone and Tramadol. This could be narcotic withdrawal/side effect, since symptoms started after those were begun. This also could be alcohol withdrawal delirium. He has been put on a CIWA protocol, Ativan and Haldol are not providing adequate sedation. Will change to Inpatient status. Will adjust Lorazepam dose and add Benadryl prn for the agitation and anxiety. Will add iv Banana bag, after iv restart after sedated. (2) Pulmonary emboli Qualifiers: Pulmonary embolism type: other Chronicity: acute Acute cor pulmonale presence: without acute cor pulmonale Qualified Code(s): I26.99 - Other pulmonary embolism without acute cor pulmonale Assessment/Plan: Continue po Xarelto. Awaiting Echo to determine if this has created cor pulmonale. (3) Postoperative pain of knee Assessment/Plan: Will use NSAIA for pain control, in order to wean off/ use less narcotics. (4) Icterus Assessment/Plan: Bili elevated, but LFTs are WNL. The macrocytic anemia suggest group home alcohol abuse. There is a question of amount of alcohol use and when he last drank. Will avoid hepatotoxins. (5) Macrocytic anemia Assessment/Plan: Will obtain B12 and Folate levels, replace if low. (6) Idiopathic cardiomyopathy Assessment/Plan: Last LVEF was 50% by testing done pre-op for elective knee surgery 1 week ago. The etiology is unknown; consider alcoholic cardiomyopathy. Pt on Carvedilol, this will be on hold if sedated. (7) Alcohol use Assessment/Plan: Since the amount of alcohol intake and last drink is not exactly known, this could be alcohol withdrawal delerium. Add iv Banana Bag, check B12 and Folate. Continue CIWA prtocol and Lorazepam prn. (8) Obstructive sleep apnea hypopnea, severe Assessment/Plan: Home CPAP ordered. Avoid oversedation, given this history. Change to inpatient status. - Current Meds Current Meds: Current Medications Generic Name Dose Route Start Last Admin Trade Name Freq PRN Reason Stop Dose Admin Acetaminophen 650 mg 10/18/18 10:38 10/18/18 19:04 Tylenol PO 650 mg Q4HR PRN Administration Pain 1 to 4 Atorvastatin Calcium 20 mg 10/18/18 12:00 10/19/18 08:54 Lipitor PO 20 mg DAILY HODA Administration Carvedilol 6.25 mg 10/18/18 12:00 10/19/18 08:54 Coreg PO 6.25 mg DAILY HODA Administration Morphine Sulfate 4 mg 10/18/18 18:17 10/18/18 20:44 Morphine (Carpuject) IVP 4 mg Q2HR PRN Administration PAIN Oxycodone HCl 5 mg 10/18/18 10:38 10/19/18 08:54 Roxicodone PO 5 mg Q4HR PRN Administration Pain 8 to 10 Polyethylene Glycol 17 gm 10/19/18 09:00 10/19/18 08:54 Miralax PO Not Given DAILY [facility] Rivaroxaban 15 mg 10/19/18 08:30 10/19/18 08:54 Xarelto PO 15 mg BIDWM HODA Administration Sodium Chloride 10 ml 10/18/18 10:38 10/18/18 20:44 Normal Saline Flush 0.9% IVP 10 ml PRN PRN Administration NEEDED PER PROVIDER ORDERS Sodium Chloride 10 ml 10/18/18 17:00 10/19/18 08:55 Normal Saline Flush 0.9% IVP Not Given 0100,0900,1700 [facility] Zolpidem Tartrate 5 mg 10/18/18 22:32 10/18/18 22:47 Ambien PO 5 mg QPM PRN Administration Insomnia - Lab Result Fish Bone Diagrams: 10/19/18 08:40 10/19/18 08:40 - Additional Planning My Orders: My Active Orders 10/19/18 07:46 Transfer [Admit \ Transfer \ Status] [] .ONCE 10/19/18 07:59 Blood Glucose POC [RC] Routine 10/19/18 09:00 Multivitamin [Infuvite] 10 ml Thiamine Inj [Vitamin B-1 Inj] 100 mg Folic Acid Inj 1 mg Sodium Chloride 0.9% [Normal Saline 0.9%] 1,000 ml IV DAILY 10/19/18 10:06 Haloperidol Inj [Haldol Inj] 5 mg IM Q6H PRN 10/20/18 05:00 COMPREHENSIVE METABOLIC PANEL [CHEM] DAILYLAB PT WITH INR [COAG] DAILYLAB 10/21/18 05:00 COMPREHENSIVE METABOLIC PANEL [CHEM] DAILYLAB 10/22/18 05:00 COMPREHENSIVE METABOLIC PANEL [CHEM] DAILYLAB Subjective - Subjective Patient Reports: Other (Confused, calling out, trying to climb out of bed, oriented to self only.) Objective Vital Signs: Vital Signs - 24 hr 10/18/18 10/18/18 10/19/18 15:51 21:04 00:30 Temperature 37.4 C 36.4 C L 36.1 C L Heart Rate [ 81 76 86 Brachial] Respiratory 20 18 18 Rate Blood Pressure 130/51 L [Left Brachial artery] Blood Pressure 147/67 H 116/55 L [Right Brachial artery] O2 Saturation 96 98 96 10/19/18 10/19/18 10/19/18 01:00 03:00 05:46 Temperature 36.4 C L 36.4 C L 37.3 C Heart Rate [ 84 92 Brachial] Respiratory 18 18 Rate Blood Pressure [Left Brachial artery] Blood Pressure 131/68 H 158/74 H [Right Brachial artery] O2 Saturation 96 94 10/19/18 10/19/18 07:28 09:58 Temperature 37.2 C 36.4 C L Heart Rate [ 62 102 H Brachial] Respiratory 18 16 Rate Blood Pressure [Left Brachial artery] Blood Pressure 179/84 H 140/104 H [Right Brachial artery] O2 Saturation 92 96 Oxygen O2 Source Room air I&O (Last 24 Hrs): Intake and Output Totals x24h 10/17/18 10/18/18 10/19/18 23:59 23:59 23:59 Intake Total 390 450 Output Total 180 1250 Balance 210 -800 General: Other (Doisoriented, fidgety.) HEENT: Mucous membr. 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.) Comments/Notes: Icteric - Results Results: Laboratory Results WBC 9.4 x10^3/uL (4.8-10.8) 10/19/18 08:40 RBC 3.29 10^6/uL (4.70-6.10) L 10/19/18 08:40 Hgb 10.5 g/dL (14.0-18.0) L 10/19/18 08:40 Hct 30.4 % (42.0-52.0) L 10/19/18 08:40 MCV 92.3 fL (80.0-94.0) 10/19/18 08:40 MCH 32.0 pg (27.0-31.0) H 10/19/18 08:40 MCHC 34.6 g/dL (32.0-36.0) 10/19/18 08:40 RDW 14.1 % (12.0-15.0) 10/19/18 08:40 Plt Count 319 10^3/uL (130-450) 10/19/18 08:40 MPV 7.8 fL (7.4-11.4) 10/19/18 08:40 Neut # (Auto) 7.0 10^3/uL (1.5-6.6) H 10/19/18 08:40 Lymph # (Auto) 1.4 10^3/uL (1.5-3.5) L 10/19/18 08:40 [place] # (Auto) 0.9 10^3/uL (0.0-1.0) 10/19/18 08:40 Eos # (Auto) 0.1 10^3/uL (0.0-0.7) 10/19/18 08:40 Baso # (Auto) 0.1 10^3/uL (0.0-0.1) 10/19/18 08:40 Absolute Nucleated RBC 0.00 x10^3/uL 10/19/18 08:40 Nucleated RBC % 0.0 /100WBC 10/19/18 08:40 Sodium 133 mmol/L (135-145) L 10/19/18 08:40 Potassium 4.1 mmol/L (3.5-5.0) 10/19/18 08:40 Chloride 99 mmol/L (101-111) L 10/19/18 08:40 Carbon Dioxide 23 mmol/L (21-32) 10/19/18 08:40 Anion Gap 11.0 (6-13) 10/19/18 08:40 BUN 17 mg/dL (6-20) 10/19/18 08:40 Creatinine 0.8 mg/dL (0.6-1.2) 10/19/18 08:40 Estimated GFR (MDRD) 96 (>89) 10/19/18 08:40 Glucose 136 mg/dL (70-100) H 10/19/18 08:40 Calcium 9.1 mg/dL (8.5-10.3) 10/19/18 08:40 Phosphorus 2.4 mg/dL (2.5-4.6) L 10/19/18 08:40 Magnesium 2.2 mg/dL (1.7-2.8) 10/19/18 08:40 Total Bilirubin 1.6 mg/dL (0.2-1.0) H 10/19/18 08:40 GGT 24 IU/L (8-55) 10/19/18 08:40 AST 41 IU/L (10-42) 10/19/18 08:40 ALT 30 IU/L (10-60) 10/19/18 08:40 Alkaline Phosphatase 55 IU/L (42-121) 10/19/18 08:40 Total Protein 7.6 g/dL (6.7-8.2) 10/19/18 08:40 Albumin 3.6 g/dL (3.2-5.5) 10/19/18 08:40 Globulin 4.0 g/dL (2.1-4.2) 10/19/18 08:40 Albumin/Globulin Ratio 0.9 (1.0-2.2) L 10/19/18 08:40 Urine Color YELLOW 10/18/18 08:40 Urine Clarity CLEAR (CLEAR) 10/18/18 08:40 Urine pH 6.0 PH (5.0-7.5) 10/18/18 08:40 Ur Specific [place] 1.015 (1.002-1.030) 10/18/18 08:40 Urine Protein NEGATIVE mg/dL (NEGATIVE) 10/18/18 08:40 Urine Glucose (UA) NEGATIVE mg/dL (NEGATIVE) 10/18/18 08:40 Urine Ketones TRACE mg/dL (NEGATIVE) 10/18/18 08:40 Urine Occult Blood NEGATIVE (NEGATIVE) 10/18/18 08:40 Urine Nitrite NEGATIVE (NEGATIVE) 10/18/18 08:40 Urine Bilirubin NEGATIVE (NEGATIVE) 10/18/18 08:40 Urine Urobilinogen 0.2 (NORMAL) E.U./dL (NORMAL) 10/18/18 08:40 Ur Leukocyte Esterase NEGATIVE (NEGATIVE) 10/18/18 08:40 Ur Microscopic Review NOT INDICATED 10/18/18 08:40 Urine Culture Comments NOT INDICATED 10/18/18 08:40 Urine Opiates Screen POSITIVE (NEGATIVE) H 10/19/18 11:00 Ur Oxycodone Screen POSITIVE (NEGATIVE) H 10/19/18 11:00 Urine Methadone Screen NEGATIVE (NEGATIVE) 10/19/18 11:00 Ur Propoxyphene Screen NEGATIVE (NEGATIVE) 10/19/18 11:00 Ur Barbiturates Screen NEGATIVE (NEGATIVE) 10/19/18 11:00 Ur Tricyclics Screen NEGATIVE (NEGATIVE) 10/19/18 11:00 Ur Phencyclidine Scrn NEGATIVE (NEGATIVE) 10/19/18 11:00 Ur Amphetamine Screen NEGATIVE (NEGATIVE) 10/19/18 11:00 U Methamphetamines Scrn NEGATIVE (NEGATIVE) 10/19/18 11:00 U Benzodiazepines Scrn POSITIVE (NEGATIVE) H 10/19/18 11:00 Urine Cocaine Screen NEGATIVE (NEGATIVE) 10/19/18 11:00 U Cannabinoids Screen NEGATIVE (NEGATIVE) 10/19/18 11:00
[2018-10-19] MEDS: MULTIVITAMIN 10 ML, THIAMINE INJ 100 MG, FOLIC ACID INJ 1 MG in SODIUM CHLORIDE 0.9% 1,... IV SCH ×2 (12:50→17:20)
[2018-10-19] MEDS ORDERED: KETOROLAC 15 MG/ML VIAL IVP PRN (13:14)
[2018-10-19] MEDS ORDERED: MULTIVITAMIN 10 ML, THIAMINE INJ 100 MG, FOLIC ACID INJ 1 MG in SODIUM CHLORIDE 0.9% 1,... IV SCH (16:41)
[2018-10-19] MEDS: LORazepam 2 MG/ML VIAL IVP PRN ×2 (18:04→21:06)
[2018-10-19] MEDS: SODIUM CHLORIDE FLUSH 0.9% 10 ML SYRINGE IVP PRN (21:07)
[2018-10-20] MEDS: LORazepam 2 MG/ML VIAL IVP PRN ×4 (02:57→19:49)
[2018-10-20] MEDS: SODIUM CHLORIDE 0.9% 500 ML IV PRN (04:07)
[2018-10-20 05:15] LABS: ALBUMIN 3.2 g/dL (3.2-5.5); ALBUMIN/GLOBULIN RATIO 0.8 (1.0-2.2); BILIRUBIN,TOTAL 1.4 mg/dL (0.2-1.0); CALCIUM 8.6 mg/dL (8.5-10.3); CREATININE 0.9 mg/dL (0.6-1.2); TOTAL PROTEIN 7.1 g/dL (6.7-8.2)
[2018-10-20 05:23] LABS: INR 2.1 (0.8-1.2); PT - PROTHROMBIN TIME 23.5 secs (9.9-12.6)
[2018-10-20] MEDS: RIVAROXABAN 15 MG TABLET PO SCH ×2 (08:47→17:04)
[2018-10-20] MEDS: POLYETHYLENE GLYCOL 3350 17 GM PACKET PO SCH (08:47)
[2018-10-20] MEDS: CARVEDILOL 3.125 MG TABLET PO SCH (08:47)
[2018-10-20] MEDS: ATORVASTATIN 10 MG TABLET PO SCH (08:47)
[2018-10-20] MEDS: SODIUM CHLORIDE FLUSH 0.9% 10 ML SYRINGE IVP SCH ×2 (08:47→17:04)
[2018-10-20] MEDS: SODIUM CHLORIDE FLUSH 0.9% 10 ML SYRINGE IVP PRN ×2 (09:00→14:30)
[2018-10-20] MEDS: MULTIVITAMIN 10 ML, THIAMINE INJ 100 MG, FOLIC ACID INJ 1 MG in SODIUM CHLORIDE 0.9% 1,... IV SCH (10:44)
--- NOTE | 2018-10-20 11:49 | PROVIDER PROGRESS NOTE ---
Assessment/Plan - Problem List (1) Acute delirium Assessment/Plan: This appears to be from his side effects to large doses of narcotics that he was dosed last week, for post-op pain, therefore possibly narcotic withdrawal and possibly from alcohol withdrawal. Will continue CIWA protocol and Ativan dosing if needed, at a lower Ativan dose. Narcotics have all been stopped. (2) Pulmonary emboli Qualifiers: Pulmonary embolism type: other Chronicity: acute Acute cor pulmonale presence: without acute cor pulmonale Qualified Code(s): I26.99 - Other pulmonary embolism without acute cor pulmonale Assessment/Plan: Pt able to take his po meds and diet and therefor4 is taking the new Xarelto. INR was tested after Xarelto was given, therefore it will not reflect his baseline liver function (to evaluate for suspision of alcohol abuse). Plan to continue Xarelto at the time of [facility]. (3) Postoperative pain of knee Assessment/Plan: No further complaints, since he has had bedrest and knee elevation for 2 days and now dosed to get Toradol prn pain, not narcotics. (4) Icterus Assessment/Plan: Bili elevated, but LFTs and GGT were normal. Will order direct and indirect bili, to evaluate for hemolysis, poor conjugation, Gilbert's syndrome, etc. (5) Macrocytic anemia Assessment/Plan: The alcohol abuse is suspected due to this finding. B12 and Folate levels pending. Monitor CBC daily. (6) Idiopathic cardiomyopathy Assessment/Plan: Coreg continues. Will restart his Losartan 25 mg daily. He was on no Spironolactone or Lasix before this admission. (7) Alcohol use Assessment/Plan: An alcohol level was not done at admission. The reported to me yesterday that his last drink was about 1 week ago. The elevated bilirubin and macrocytosis suggest continued alcohol use in excess. For this reason, he is on a CIWA protocol and Ativan dosing prn. If his delerium is from alcohol withdrawal, this should take its course in the next few days. Monitor mental status, as above. Banana bag iv ordered daily. (8) Obstructive sleep apnea hypopnea, severe Assessment/Plan: Home CPAP was ordered for use here and is at his bedside. - Current Meds Current Meds: Current Medications Generic Name Dose Route Start Last Admin Trade Name Freq PRN Reason Stop Dose Admin Acetaminophen 650 mg 10/18/18 10:38 10/18/18 19:04 Tylenol PO 650 mg Q4HR PRN Administration Pain 1 to 4 Atorvastatin Calcium 20 mg 10/18/18 12:00 10/20/18 08:47 Lipitor PO 20 mg DAILY HODA Administration Carvedilol 6.25 mg 10/18/18 12:00 10/20/18 08:47 Coreg PO 6.25 mg DAILY HODA Administration Multivitamins 10 ml/ Thiamine 1,011.2 mls @ 100 mls/hr 10/19/18 09:00 10/20/18 10:44 HCl 100 mg/ Folic Acid 1 mg/ IV 100 mls/hr Sodium Chloride DAILY HODA Administration Sodium Chloride 500 mls @ 0 mls/hr 10/20/18 04:00 10/20/18 10:49 Normal Saline 0.9% IV 0 mls/hr Q24H PRN Infusion TKO RATE TKO Ketorolac Tromethamine 15 mg 10/19/18 13:14 10/19/18 17:25 Toradol Inj (15mg) IVP 10/24/18 13:13 15 mg Q6HR PRN Administration PAIN Lorazepam 3 mg 10/19/18 17:54 10/20/18 08:59 Ativan Inj (Vial) IVP 3 mg Q30M PRN Administration CIWA >8 Protocol Polyethylene Glycol 17 gm 10/19/18 09:00 10/20/18 08:47 Miralax PO Not Given DAILY [facility] Rivaroxaban 15 mg 10/19/18 08:30 10/20/18 08:47 Xarelto PO 15 mg BIDWM HODA Administration Sodium Chloride 10 ml 10/18/18 10:38 10/20/18 09:00 Normal Saline Flush 0.9% IVP 10 ml PRN PRN Administration NEEDED PER PROVIDER ORDERS Sodium Chloride 10 ml 10/18/18 17:00 10/20/18 08:47 Normal Saline Flush 0.9% IVP Not Given 0100,0900,1700 HODA - Lab Result Fish Bone Diagrams: 10/19/18 08:40 10/20/18 04:55 - Additional Planning My Orders: My Active Orders 10/19/18 13:14 Ketorolac Inj (15Mg) [Toradol Inj (15Mg)] 15 mg IVP Q6HR PRN 10/19/18 17:54 LORazepam INJ [Ativan Inj (Vial)] 3 mg IVP Q30M PRN 10/20/18 04:55 FOLATE [IAI] Routine IRON TIBC PANEL [CHEM] Routine VITAMIN B12 [IAI] Routine 10/21/18 05:00 CBC - COMP BLD CT W/AUTO DIFF [HEME] DAILYLAB COMPREHENSIVE METABOLIC PANEL [CHEM] DAILYLAB 10/22/18 05:00 CBC - COMP BLD CT W/AUTO DIFF [HEME] DAILYLAB COMPREHENSIVE METABOLIC PANEL [CHEM] DAILYLAB Subjective - Subjective Patient Reports: Resting Comfortably Nursing Reports: Other (He is less beligerent, he awoke to be fed breakfast, he follows commands when "spoken to strictly".) Objective Vital Signs: Vital Signs - 24 hr 10/19/18 10/19/18 10/19/18 12:50 15:00 17:00 Temperature 36.7 C 37.2 C 37.2 C Heart Rate [ 72 70 85 Brachial] Respiratory 16 18 18 Rate Blood Pressure 109/80 [Left Brachial artery] Blood Pressure 147/88 H 135/78 H [Right Brachial artery] O2 Saturation 94 97 94 10/19/18 10/19/18 10/19/18 18:35 19:00 21:00 Temperature 36.8 C 36.6 C Heart Rate [ 74 77 Brachial] Respiratory 18 20 20 Rate Blood Pressure 133/56 H 109/55 L [Left Brachial artery] Blood Pressure [Right Brachial artery] O2 Saturation 94 99 10/19/18 10/20/18 10/20/18 22:53 01:53 05:07 Temperature 36.8 C 37.4 C 37.2 C Heart Rate [ 62 75 82 Brachial] Respiratory 20 20 20 Rate Blood Pressure 136/55 H 140/73 H 173/58 H [Left Brachial artery] Blood Pressure [Right Brachial artery] O2 Saturation 94 94 94 10/20/18 10/20/18 08:00 10:00 Temperature 36.8 C 37.1 C Heart Rate [ 86 83 Brachial] Respiratory 20 22 Rate Blood Pressure 151/88 H 155/63 H [Left Brachial artery] Blood Pressure [Right Brachial artery] O2 Saturation 92 93 Oxygen O2 Source Nasal cannula I&O (Last 24 Hrs): Intake and Output Totals x24h 10/18/18 10/19/1810/20/19 23:59 23:59 23:59 Intake Total 390 1090 1705.2 Output Total 180 1250 400 Balance 210 -160 1305.2 General: Other (Somnolent but figity, awakens then falls back asleep.) HEENT: Mucous membr. moist/pink Neck: Supple, No JVD Neuro: Other (Obtunded (on Ativan) but intermittently fidgity.) Cardiovascular: Regular rate, No murmurs Respiratory: No respiratory distress Abdomen: Soft, Other (Distended vs obese) Extremities: No edema Comments/Notes: Icteric - Results Results: Laboratory Results WBC 9.4 x10^3/uL (4.8-10.8) 10/19/18 08:40 RBC 3.29 10^6/uL (4.70-6.10) L 10/19/18 08:40 Hgb 10.5 g/dL (14.0-18.0) L 10/19/18 08:40 Hct 30.4 % (42.0-52.0) L 10/19/18 08:40 MCV 92.3 fL (80.0-94.0) 10/19/18 08:40 MCH 32.0 pg (27.0-31.0) H 10/19/18 08:40 MCHC 34.6 g/dL (32.0-36.0) 10/19/18 08:40 RDW 14.1 % (12.0-15.0) 10/19/18 08:40 Plt Count 319 10^3/uL (130-450) 10/19/18 08:40 MPV 7.8 fL (7.4-11.4) 10/19/18 08:40 Neut # (Auto) 7.0 10^3/uL (1.5-6.6) H 10/19/18 08:40 Lymph # (Auto) 1.4 10^3/uL (1.5-3.5) L 10/19/18 08:40 [place] # (Auto) 0.9 10^3/uL (0.0-1.0) 10/19/18 08:40 Eos # (Auto) 0.1 10^3/uL (0.0-0.7) 10/19/18 08:40 Baso # (Auto) 0.1 10^3/uL (0.0-0.1) 10/19/18 08:40 Absolute Nucleated RBC 0.00 x10^3/uL 10/19/18 08:40 Nucleated RBC % 0.0 /100WBC 10/19/18 08:40 PT 23.5 secs (9.9-12.6) H 10/20/18 04:55 INR 2.1 (0.8-1.2) H 10/20/18 04:55 Sodium 136 mmol/L (135-145) 10/20/18 04:55 Potassium 4.0 mmol/L (3.5-5.0) 10/20/18 04:55 Chloride 105 mmol/L (101-111) 10/20/18 04:55 Carbon Dioxide 22 mmol/L (21-32) 10/20/18 04:55 Anion Gap 9.0 (6-13) 10/20/18 04:55 BUN 23 mg/dL (6-20) H 10/20/18 04:55 Creatinine 0.9 mg/dL (0.6-1.2) 10/20/18 04:55 Estimated GFR (MDRD) 84 (>89) L 10/20/18 04:55 Glucose 119 mg/dL (70-100) H 10/20/18 04:55 Calcium 8.6 mg/dL (8.5-10.3) 10/20/18 04:55 Phosphorus 2.4 mg/dL (2.5-4.6) L 10/19/18 08:40 Magnesium 2.2 mg/dL (1.7-2.8) 10/19/18 08:40 Total Bilirubin 1.4 mg/dL (0.2-1.0) H 10/20/18 04:55 GGT 24 IU/L (8-55) 10/19/18 08:40 AST 56 IU/L (10-42) H 10/20/18 04:55 ALT 45 IU/L (10-60) 10/20/18 04:55 Alkaline Phosphatase 52 IU/L (42-121) 10/20/18 04:55 Total Protein 7.1 g/dL (6.7-8.2) 10/20/18 04:55 Albumin 3.2 g/dL (3.2-5.5) 10/20/18 04:55 Globulin 3.9 g/dL (2.1-4.2) 10/20/18 04:55 Albumin/Globulin Ratio 0.8 (1.0-2.2) L 10/20/18 04:55 Urine Color YELLOW 10/18/18 08:40 Urine Clarity CLEAR (CLEAR) 10/18/18 08:40 Urine pH 6.0 PH (5.0-7.5) 10/18/18 08:40 Ur Specific [place] 1.015 (1.002-1.030) 10/18/18 08:40 Urine Protein NEGATIVE mg/dL (NEGATIVE) 10/18/18 08:40 Urine Glucose (UA) NEGATIVE mg/dL (NEGATIVE) 10/18/18 08:40 Urine Ketones TRACE mg/dL (NEGATIVE) 10/18/18 08:40 Urine Occult Blood NEGATIVE (NEGATIVE) 10/18/18 08:40 Urine Nitrite NEGATIVE (NEGATIVE) 10/18/18 08:40 Urine Bilirubin NEGATIVE (NEGATIVE) 10/18/18 08:40 Urine Urobilinogen 0.2 (NORMAL) E.U./dL (NORMAL) 10/18/18 08:40 Ur Leukocyte Esterase NEGATIVE (NEGATIVE) 10/18/18 08:40 Ur Microscopic Review NOT INDICATED 10/18/18 08:40 Urine Culture Comments NOT INDICATED 10/18/18 08:40 Urine Opiates Screen POSITIVE (NEGATIVE) H 10/19/18 11:00 Ur Oxycodone Screen POSITIVE (NEGATIVE) H 10/19/18 11:00 Urine Methadone Screen NEGATIVE (NEGATIVE) 10/19/18 11:00 Ur Propoxyphene Screen NEGATIVE (NEGATIVE) 10/19/18 11:00 Ur Barbiturates Screen NEGATIVE (NEGATIVE) 10/19/18 11:00 Ur Tricyclics Screen NEGATIVE (NEGATIVE) 10/19/18 11:00 Ur Phencyclidine Scrn NEGATIVE (NEGATIVE) 10/19/18 11:00 Ur Amphetamine Screen NEGATIVE (NEGATIVE) 10/19/18 11:00 U Methamphetamines Scrn NEGATIVE (NEGATIVE) 10/19/18 11:00 U Benzodiazepines Scrn POSITIVE (NEGATIVE) H 10/19/18 11:00 Urine Cocaine Screen NEGATIVE (NEGATIVE) 10/19/18 11:00 U Cannabinoids Screen NEGATIVE (NEGATIVE) 10/19/18 11:00 ABX Reporting Has patient been on IV antibiotics over the past 48 hours?: No
[2018-10-20] MEDS ORDERED: LOSARTAN 50 MG TABLET PO SCH (12:15)
[2018-10-20 12:39] LABS: % IRON SATURATION 15 % (20-50); IRON 40 ug/dL (45-182); TOTAL IRON BINDING CAPACITY 269 ug/dL (250-450); TRANSFERRIN 192 mg/dL (180-329)
[2018-10-20 13:13] LABS: BILIRUBIN,DIRECT 0.2 mg/dL (0.1-0.5); BILIRUBIN,INDIRECT 0.9 mg/dL; BILIRUBIN,TOTAL 1.1 mg/dL (0.2-1.0)
[2018-10-21 05:44] LABS: BASOPHILS # (AUTO) 0.1 10^3/uL (0.0-0.1); BASOPHILS % (AUTO) 0.8 %; EOSINOPHILS # (AUTO) 0.6 10^3/uL (0.0-0.7); HGB - HEMOGLOBIN 11.2 g/dL (14.0-18.0); LYMPHOCYTES # (AUTO) 2.4 10^3/uL (1.5-3.5); LYMPHOCYTES % (AUTO) 19.5 %; MEAN CORPUSCULAR HEMOGLOBIN 31.4 pg (27.0-31.0); MEAN CORPUSCULAR HGB CONC 33.1 g/dL (32.0-36.0); MEAN CORPUSCULAR VOLUME 94.9 fL (80.0-94.0); MEAN PLATELET VOLUME 7.6 fL (7.4-11.4); MONOCYTES # (AUTO) 1.3 10^3/uL (0.0-1.0); MONOCYTES % (AUTO) 10.9 %; NEUTROPHILS # (AUTO) 7.8 10^3/uL (1.5-6.6); NEUTROPHILS % (AUTO) 63.8 %; PLT - PLATELET COUNT 444 10^3/uL (130-450); RED BLOOD COUNT 3.55 10^6/uL (4.70-6.10); WHITE BLOOD COUNT 12.2 x10^3/uL (4.8-10.8)
[2018-10-21 05:48] LABS: ALBUMIN 3.2 g/dL (3.2-5.5); ALBUMIN/GLOBULIN RATIO 0.8 (1.0-2.2); BILIRUBIN,TOTAL 1.3 mg/dL (0.2-1.0); CALCIUM 8.8 mg/dL (8.5-10.3); TOTAL PROTEIN 7.2 g/dL (6.7-8.2)
[2018-10-21] MEDS: SODIUM CHLORIDE FLUSH 0.9% 10 ML SYRINGE IVP SCH ×3 (06:09→19:19)
[2018-10-21] MEDS: ACETAMINOPHEN 325 MG TABLET PO PRN ×3 (09:08→23:34)
[2018-10-21] MEDS: ATORVASTATIN 10 MG TABLET PO SCH (09:08)
[2018-10-21] MEDS: POLYETHYLENE GLYCOL 3350 17 GM PACKET PO SCH (09:08)
[2018-10-21] MEDS: THIAMINE 100 MG TABLET PO SCH (09:08)
[2018-10-21] MEDS: RIVAROXABAN 15 MG TABLET PO SCH ×2 (09:09→16:57)
[2018-10-21] MEDS: CARVEDILOL 3.125 MG TABLET PO SCH (09:09)
[2018-10-21] MEDS: LOSARTAN 50 MG TABLET PO SCH (09:09)
[2018-10-21] MEDS: SENNA 8.6 MG TABLET PO SCH (09:23)
[2018-10-21] MEDS: DOCUSATE SODIUM 250 MG CAPSULE PO SCH (09:23)
[2018-10-21] MEDS ORDERED: LORazepam 2 MG/ML VIAL IVP PRN (09:30)
--- NOTE | 2018-10-21 12:31 | PROVIDER PROGRESS NOTE ---
Assessment/Plan - Problem List (1) Acute delirium Assessment/Plan: He appears tired but is awake and answers and behaves appropriately. He likley had alcohol withdrawal and narcotic withdrawal. Will continue to decrease Ativan use. Will ask for PT eval today. Possible DCh tomorrow, discussed with SW. (2) Pulmonary emboli Qualifiers: Pulmonary embolism type: other Chronicity: acute Acute cor pulmonale presence: without acute cor pulmonale Qualified Code(s): I26.99 - Other pulmon hemal embolism without acute cor pulmonale Assessment/Plan: Stable H/H on bid dose of Xarelto for acute PE. Continue Xarelto. (3) Postoperative pain of knee Assessment/Plan: No further complaints. (4) Icterus Assessment/Plan: The bili is mildly elevated daily, and direct and indirect bili are WNL. This, along with macrocytosis, and elevated AST/ALT ratio suggests alcohol use in excess. When he is more alert, this will be addressed directly with patient, prior to Dch. (5) Macrocytic anemia Assessment/Plan: As above. (6) Idiopathic cardiomyopathy Assessment/Plan: Pt on Losartan and daily Coreg, as before admission. (7) Alcohol use Assessment/Plan: Elevated bili, macrocytosis, and elevated AST/ALT ratio suggests alcohol use in excess. When he is more alert, this will be addressed directly with patient, prior to Dch. (8) Obstructive sleep apnea hypopnea, severe Assessment/Plan: Patient using home CPAP. - Current Meds Current Meds: Current Medications Generic Name Dose Route Start Last Admin Trade Name Freq PRN Reason Stop Dose Admin Acetaminophen 650 mg 10/18/18 10:38 10/21/18 09:08 Tylenol PO 650 mg Q4HR PRN Administration Pain 1 to 4 Atorvastatin Calcium 20 mg 10/18/18 12:00 10/21/18 09:08 Lipitor PO 20 mg DAILY HODA Administration Carvedilol 6.25 mg 10/18/18 12:00 10/21/18 09:09 Coreg PO 6.25 mg DAILY HODA Administration Docusate Sodium 250 - 500 mg 10/21/18 09:00 10/21/18 09:23 Colace 250mg Capsule PO 250 mg DAILY HODA Administration Sodium Chloride 500 mls @ 0 mls/hr 10/20/18 04:00 10/20/18 21:10 Normal Saline 0.9% IV 20 mls/hr Q24H PRN Infusion TKO RATE TKO Ketorolac Tromethamine 15 mg 10/19/18 13:14 10/19/18 17:25 Toradol Inj (15mg) IVP 10/24/18 13:13 15 mg Q6HR PRN Administration PAIN Losartan Potassium 25 mg 10/21/18 09:00 10/21/18 09:09 Cozaar PO 25 mg DAILY HODA Administration Polyethylene Glycol 17 gm 10/19/18 09:00 10/21/18 09:08 Miralax PO 17 gm DAILY HODA Administration Rivaroxaban 15 mg 10/19/18 08:30 10/21/18 09:09 Xarelto PO 15 mg BIDWM HODA Administration Senna 8.6 - 17.2 mg 10/21/18 09:00 10/21/18 09:23 Senokot PO 8.6 mg DAILY HODA Administration Sodium Chloride 10 ml 10/18/18 10:38 10/20/18 14:30 Normal Saline Flush 0.9% IVP 10 ml PRN PRN Administration NEEDED PER PROVIDER ORDERS Sodium Chloride 10 ml 10/18/18 17:00 10/21/18 09:26 Normal Saline Flush 0.9% IVP Not Given 0100,0900,1700 HODA Thiamine HCl 100 mg 10/21/18 09:00 10/21/18 09:08 Vitamin B-1 PO 100 mg DAILY HODA Administration - Lab Result Fish Bone Diagrams: 10/21/18 05:30 10/21/18 05:30 - Additional Planning My Orders: My Active Orders 10/21/18 Evaluate and Treat OT [OT] Routine Evaluate and Treat PT [PT] Routine 10/21/18 09:00 Docusate Sodium 250Mg Capsule [Colace 250Mg Capsule] 250 - 500 mg PO DAILY Losartan [Cozaar] 25 mg PO DAILY Senna [Senokot] 8.6 - 17.2 mg PO DAILY Thiamine [Vitamin B-1] 100 mg PO DAILY 10/21/18 09:30 LORazepam INJ [Ativan Inj (Vial)] 1 mg IVP Q1H PRN 10/22/18 05:00 CBC - COMP BLD CT W/AUTO DIFF [HEME] DAILYLAB COMPREHENSIVE METABOLIC PANEL [CHEM] DAILYLAB Subjective - Subjective Patient Reports: Feeling Better Nursing Reports: Other (He was able to stay awake sitting in a chair. Today was the first day he followed commands and helped rise out of bed.) Objective Vital Signs: Vital Signs - 24 hr 10/20/18 10/20/18 10/20/18 14:06 15:19 16:07 Temperature 37.0 C 36.9 C Heart Rate [ Activity] Heart Rate [ 79 70 Brachial] Respiratory 20 20 Rate Blood Pressure [Activity] Blood Pressure 135/83 H 166/84 H 148/63 H [Left Brachial artery] O2 Saturation 94 93 10/20/18 10/20/18 10/20/18 17:00 18:52 20:52 Temperature 36.8 C 37 C 37.0 C Heart Rate [ Activity] Heart Rate [ 77 74 75 Brachial] Respiratory 24 22 24 Rate Blood Pressure [Activity] Blood Pressure 152/80 H 148/74 H 165/66 H [Left Brachial artery] O2 Saturation 93 94 93 10/20/18 10/21/18 10/21/18 22:55 00:14 03:04 Temperature 37.1 C 36.7 C 37.0 C Heart Rate [ Activity] Heart Rate [ 81 65 84 Brachial] Respiratory 20 20 22 Rate Blood Pressure [Activity] Blood Pressure 154/86 H 138/68 H 160/68 H [Left Brachial artery] O2 Saturation 92 97 95 10/21/18 10/21/18 10/21/18 05:54 08:15 10:55 Temperature 37.2 C 36 C L Heart Rate [ 73 Activity] Heart Rate [ 72 81 Brachial] Respiratory 22 20 Rate Blood Pressure 101/66 [Activity] Blood Pressure 141/77 H 156/63 H [Left Brachial artery] O2 Saturation 95 95 10/21/18 11:38 Temperature 36.4 C L Heart Rate [ Activity] Heart Rate [ 73 Brachial] Respiratory 20 Rate Blood Pressure [Activity] Blood Pressure 90/61 [Left Brachial artery] O2 Saturation 98 Oxygen O2 Source Room air I&O (Last 24 Hrs): Intake and Output Totals x24h 10/19/18 10/20/18 10/21/18 23:59 23:59 23:59 Intake Total 1090 3526.4 720 Output Total 1250 1550 650 Balance -160 1976.4 70 General: Alert, Other (Appears fatigued) HEENT: PERRLA, Mucous membr. moist/pink Neck: Supple, No JVD Neuro: Other (Flight of ideas, otherwise non-focal.) Cardiovascular: Regular rate, No murmurs Respiratory: No respiratory distress Abdomen: Soft Extremities: No edema - Results Results: Laboratory Results WBC 12.2 x10^3/uL (4.8-10.8) H 10/21/18 05:30 RBC 3.55 10^6/uL (4.70-6.10) L 10/21/18 05:30 Hgb 11.2 g/dL (14.0-18.0) L 10/21/18 05:30 Hct 33.7 % (42.0-52.0) L 10/21/18 05:30 MCV 94.9 fL (80.0-94.0) H 10/21/18 05:30 MCH 31.4 pg (27.0-31.0) H 10/21/18 05:30 MCHC 33.1 g/dL (32.0-36.0) 10/21/18 05:30 RDW 14.0 % (12.0-15.0) 10/21/18 05:30 Plt Count 444 10^3/uL (130-450) 10/21/18 05:30 MPV 7.6 fL (7.4-11.4) 10/21/18 05:30 Neut # (Auto) 7.8 10^3/uL (1.5-6.6) H 10/21/18 05:30 Lymph # (Auto) 2.4 10^3/uL (1.5-3.5) 10/21/18 05:30 Liberty # (Auto) 1.3 10^3/uL (0.0-1.0) H 10/21/18 05:30 Eos # (Auto) 0.6 10^3/uL (0.0-0.7) 10/21/18 05:30 Baso # (Auto) 0.1 10^3/uL (0.0-0.1) 10/21/18 05:30 Absolute Nucleated RBC 0.01 x10^3/uL 10/21/18 05:30 Nucleated RBC % 0.1 /100WBC 10/21/18 05:30 PT 23.5 secs (9.9-12.6) H 10/20/18 04:55 INR 2.1 (0.8-1.2) H 10/20/18 04:55 Sodium 135 mmol/L (135-145) 10/21/18 05:30 Potassium 3.9 mmol/L (3.5-5.0) 10/21/18 05:30 Chloride 105 mmol/L (101-111) 10/21/18 05:30 Carbon Dioxide 20 mmol/L (21-32) L 10/21/18 05:30 Anion Gap 10.0 (6-13) 10/21/18 05:30 BUN 18 mg/dL (6-20) 10/21/18 05:30 Creatinine 1.0 mg/dL (0.6-1.2) 10/21/18 05:30 Estimated GFR (MDRD) 74 (>89) L 10/21/18 05:30 Glucose 125 mg/dL (70-100) H 10/21/18 05:30 Calcium 8.8 mg/dL (8.5-10.3) 10/21/18 05:30 Phosphorus 2.4 mg/dL (2.5-4.6) L 10/19/18 08:40 Magnesium 2.2 mg/dL (1.7-2.8) 10/19/18 08:40 Iron 40 ug/dL (45-182) L 10/20/18 04:55 TIBC 269 ug/dL (250-450) 10/20/18 04:55 % Saturation 15 % (20-50) L 10/20/18 04:55 Transferrin 192 mg/dL (180-329) 10/20/18 04:55 Total Bilirubin 1.3 mg/dL (0.2-1.0) H 10/21/18 05:30 Direct Bilirubin 0.2 mg/dL (0.1-0.5) 10/20/18 04:50 Indirect Bilirubin 0.9 mg/dL 10/20/18 04:50 GGT 24 IU/L (8-55) 10/19/18 08:40 AST 55 IU/L (10-42) H 10/21/18 05:30 ALT 51 IU/L (10-60) 10/21/18 05:30 Alkaline Phosphatase 57 IU/L (42-121) 10/21/18 05:30 Total Protein 7.2 g/dL (6.7-8.2) 10/21/18 05:30 Albumin 3.2 g/dL (3.2-5.5) 10/21/18 05:30 Globulin 4.0 g/dL (2.1-4.2) 10/21/18 05:30 Albumin/Globulin Ratio 0.8 (1.0-2.2) L 10/21/18 05:30 Vitamin B12 689 pg/mL (180-914) 10/20/18 04:55 Folate 25.00 ng/mL (5.90 - >24.8) 10/20/18 04:55 Urine Color YELLOW 10/18/18 08:40 Urine Clarity CLEAR (CLEAR) 10/18/18 08:40 Urine pH 6.0 PH (5.0-7.5) 10/18/18 08:40 Ur Specific Orange 1.015 (1.002-1.030) 10/18/18 08:40 Urine Protein NEGATIVE mg/dL (NEGATIVE) 10/18/18 08:40 Urine Glucose (UA) NEGATIVE mg/dL (NEGATIVE) 10/18/18 08:40 Urine Ketones TRACE mg/dL (NEGATIVE) 10/18/18 08:40 Urine Occult Blood NEGATIVE (NEGATIVE) 10/18/18 08:40 Urine Nitrite NEGATIVE (NEGATIVE) 10/18/18 08:40 Urine Bilirubin NEGATIVE (NEGATIVE) 10/18/18 08:40 Urine Urobilinogen 0.2 (NORMAL) E.U./dL (NORMAL) 10/18/18 08:40 Ur Leukocyte Esterase NEGATIVE (NEGATIVE) 10/18/18 08:40 Ur Microscopic Review NOT INDICATED 10/18/18 08:40 Urine Culture Comments NOT INDICATED 10/18/18 08:40 Urine Opiates Screen POSITIVE (NEGATIVE) H 10/19/18 11:00 Ur Oxycodone Screen POSITIVE (NEGATIVE) H 10/19/18 11:00 Urine Methadone Screen NEGATIVE (NEGATIVE) 10/19/18 11:00 Ur Propoxyphene Screen NEGATIVE (NEGATIVE) 10/19/18 11:00 Ur Barbiturates Screen NEGATIVE (NEGATIVE) 10/19/18 11:00 Ur Tricyclics Screen NEGATIVE (NEGATIVE) 10/19/18 11:00 Ur Phencyclidine Scrn NEGATIVE (NEGATIVE) 10/19/18 11:00 Ur Amphetamine Screen NEGATIVE (NEGATIVE) 10/19/18 11:00 U Methamphetamines Scrn NEGATIVE (NEGATIVE) 10/19/18 11:00 U Benzodiazepines Scrn POSITIVE (NEGATIVE) H 10/19/18 11:00 Urine Cocaine Screen NEGATIVE (NEGATIVE) 10/19/18 11:00 U Cannabinoids Screen NEGATIVE (NEGATIVE) 10/19/18 11:00
[2018-10-21] MEDS ORDERED: SODIUM CHLORIDE FLUSH 0.9% 10 ML SYRINGE ONE (22:51)
[2018-10-21] MEDS: SODIUM CHLORIDE 0.9% 500 ML IV PRN (22:51)
[2018-10-21] MEDS ORDERED: SODIUM CHLORIDE 0.9% 500 ML IV ONE (22:51)
[2018-10-22] MEDS: SODIUM CHLORIDE FLUSH 0.9% 10 ML SYRINGE IVP SCH ×2 (01:13→08:51)
[2018-10-22 05:17] LABS: BASOPHILS % (AUTO) 0.3 %; EOSINOPHILS # (AUTO) 0.6 10^3/uL (0.0-0.7); EOSINOPHILS % (AUTO) 5.9 %; HGB - HEMOGLOBIN 10.9 g/dL (14.0-18.0); LYMPHOCYTES % (AUTO) 18.9 %; MEAN CORPUSCULAR HEMOGLOBIN 31.5 pg (27.0-31.0); MEAN CORPUSCULAR HGB CONC 32.9 g/dL (32.0-36.0); MEAN CORPUSCULAR VOLUME 95.5 fL (80.0-94.0); MEAN PLATELET VOLUME 7.6 fL (7.4-11.4); MONOCYTES % (AUTO) 9.3 %; NEUTROPHILS # (AUTO) 6.9 10^3/uL (1.5-6.6); NEUTROPHILS % (AUTO) 65.6 %; PLT - PLATELET COUNT 479 10^3/uL (130-450); RED BLOOD COUNT 3.45 10^6/uL (4.70-6.10); WHITE BLOOD COUNT 10.6 x10^3/uL (4.8-10.8)
[2018-10-22 05:31] LABS: ALBUMIN 3.2 g/dL (3.2-5.5); ALBUMIN/GLOBULIN RATIO 0.9 (1.0-2.2); BILIRUBIN,TOTAL 1.2 mg/dL (0.2-1.0); CALCIUM 8.8 mg/dL (8.5-10.3); TOTAL PROTEIN 6.9 g/dL (6.7-8.2)
[2018-10-22] MEDS: ACETAMINOPHEN 325 MG TABLET PO PRN ×2 (06:39→12:35)
[2018-10-22 07:52] VITALS: BP 120/62
[2018-10-22] MEDS ORDERED: FERROUS SULFATE 325 MG TABLET PO SCH (08:00)
--- NOTE | 2018-10-22 08:20 | Discharge Plan ---
Discharge Plan Disposition: Home, Self Care Condition: Fair Prescriptions: Ferrous Gluconate 240 mg PO DAILY #30 tablet Rivaroxaban [Xarelto] 15 mg PO BIDWM #60 tablet Senna [Senokot] 8.6 mg PO DAILY #30 tablet Thiamine [Vitamin B-1] 100 mg PO DAILY #30 tablet Diet: Regular Activity Restrictions: Activity as Tolerated Shower Restrictions: No Driving Restrictions: Yes (No driving until cleared to drive by your PCP) Instruction Topics: Embolism Pulmonary, Post Op Pain Manage Home Meds, ED Cirrhosis Liver, ED Withdrawal Narcotic, ED Alcohol Abuse Additional Instructions or Follow Up instructions: You were admitted for treatment of blood clots in your lungs and delirium from narcotic pain medication use. You should not be taking narcotic pain medications as you are very sensitive to their side effects. In addition, alcohol intake should be limited, because your lab test show that your liver is being affected. You are being discharged on a blood thinner, to treat the blood clots, called Xarelto. It needs to be taken at doses of 15 mg twice a day (with food) for 3 weeks than 20 mg once daily (with dinner) for 2 and 1/2 more months. You should have follow-up with your PCP to get refills and to determine if the duration of treatment should be longer. If you develop any severe bleeding, call your doctor or come to the ER. In addition to the blood clots, the CT scan also showed you have a widening of your ascending aorta, called a thoracic aortic aneurysm. This will need to be carefully followed with yearly CT imaging, and if it enlarges it may need surgical repair to prevent rupture. Your doctor can refer you to a thoracic surgeon for following that. Resume taking your Carvedilol and Losartan and using the CPAP machine. STOP using the Percocet and Tramadol. You may take Celebrex, but very infrequently, for knee pain, otherwise take an extra-strength Tylenol. You may resume Physical Therapy as tolerated. Your doctor should decide if you should stay on Lipitor and Hydroxyzine. You are being discharged with 1 month prescriptions for Iron and Thiamine vitamin replacements. Talk to your doctor about taking these any longer. A prescription for constipation was also ordered, if you need it. You should see your PCP in follow-up in 5-7 days. If you have new or worsening symptoms, come to the ER. No Smoking: If you smoke, Please STOP! Call for help. Follow-up with: David Ceballos MD [Primary Care Provider] -
[2018-10-22] MEDS: DOCUSATE SODIUM 250 MG CAPSULE PO SCH (08:49)
[2018-10-22] MEDS: CARVEDILOL 3.125 MG TABLET PO SCH (08:50)
[2018-10-22] MEDS: ATORVASTATIN 10 MG TABLET PO SCH (08:50)
[2018-10-22] MEDS: THIAMINE 100 MG TABLET PO SCH (08:50)
[2018-10-22] MEDS: LOSARTAN 50 MG TABLET PO SCH (08:50)
[2018-10-22] MEDS: SENNA 8.6 MG TABLET PO SCH (08:50)
[2018-10-22] MEDS: RIVAROXABAN 15 MG TABLET PO SCH (08:50)
[2018-10-22] MEDS: POLYETHYLENE GLYCOL 3350 17 GM PACKET PO SCH (08:51)
--- NOTE | 2018-10-22 16:58 | DISCHARGE SUMMARY ---
Physician: Sangita Acevedo MD DATE OF ADMISSION: 10/18/2018 DATE OF DISCHARGE: 10/22/2018 HISTORY OF PRESENT ILLNESS: This is a 67-year-old white male with a history of idiopathic cardiomyopathy, thoracic aortic aneurysm, osteoarthritis with recent knee replacement surgery. The reports that he was given narcotics of Percocet and Tramadol postoperatively, which caused him to be confused postop in the hospital and even worse when he got home. He did start physical therapy at home. He started complaining of severe constipation and for this reason presented to the emergency room, also complaining of "feeling like he had dementia" since this week of being home postop and described a cough with shortness of breath and hemoptysis. He underwent a CTA of the chest and was found to have bilateral pulmonary emboli and was initially placed in Observation status for starting anticoagulation and for treating his severe constipation. In the first 12 hours, however, he became delirious and was transferred to full inpatient status for management of delirium. HOSPITAL COURSE AND DISCHARGE DIAGNOSES 1. Acute narcotic withdrawal with delirium. His symptoms were that of disorientation to person, place, and time, hallucinations, belligerent and aggressive behavior. He required sedation and restraints and was put on [facility] protocol for potential alcohol withdrawal, but then the details of the narcotic pain medication use became evident and his complaints of confusion were felt to be from those narcotics, which were being dosed scheduled not p.r.n. at home. IV Ativan, IV Haldol use and discontinuation of Morphine and Tramadol eventually resulted in adequate sedation and he remained this way for approximately 48 hours. He eventually was able to recognize his and his surroundings, was cooperative and able to sit up in a chair independently and took a diet. He was seen by Physical Therapy and was discharged home to complete his PT, warned not to overdo it in order to avoid excessive pain medication use. He was told not to resume the Percocet or Tramadol at home, but rather to use infrequent Celebrex, or p.r.n. [id number] Aleve, and p.r.n. Extra Strength Tylenol. He was told that he may not drive a car until he was cleared by his PCP because of his continued lethargy and mild confusion at the end of the hospitalization. 2. Bilateral pulmonary emboli. The patient had complaints of severe pain in the leg that had knee surgery. This suggested a DVT. He did have findings of bilateral pulmonary emboli on CT imaging. He was started on Xarelto 15 mg p.o. b.i.d. as per protocol for PE treatment and tolerated this while hospitalized. He was discharged with a new prescription for Xarelto 15 mg p.o. b.i.d. for 3 weeks and then plan to transition to 20 mg p.o. daily with dinner for an additional 2-1/2 months. He should have PCP followup for decision about continuing Xarelto longer than 3 months, however, because it appears that he has a provoked venous thrombosis, a 3-month treatment is per guidelines. He was advised to watch for excessive bleeding and to avoid excessive NSAID use while he is taking Xarelto. 3. Postoperative pain of the knee. While he was agitated and delirious, he had continued complaints of pain in the right knee. The wound site appeared clean, dry, not warm or swollen, and he needed only 1 day of IV Toradol prn and later had no further complaints of pain. 4. Icterus. Patient's lab values suggested that he had alcohol use causing liver function test abnormalities. His total bilirubin was 1.6, which fluctuated between 1.4 and 1.2 during his entire stay. His direct bilirubin was 0.2 and indirect bilirubin 0.9. At discharge, when his mentation was clearest, he was advised to decrease or stop alcohol intake because of the results of liver function testing. 5. Macrocytic anemia. At presentation, his hemoglobin was 10.8 and MCV 95. Hemoglobin remained stable in the 11 range throughout the admission. He had lab tests that showed adequate B12 level of 689 and folate level of 25. He was placed on thiamine IV and then p.o. while here because of the history of alcohol use. His iron panel showed a low iron of 40, TIBC of 269, and percent saturation of 15%, and he was started on ferrous gluconate 250 mg daily on his last day and to continue for a month at discharge. 6. Idiopathic cardiomyopathy. Old records were reviewed that showed he had recent LVEF of 50%. There were no signs of congestive heart failure while here even with gentle IV hydration and oral fluid intake. He was kept on his Coreg and Losartan doses when he was able to swallow his medications. 7. Alcohol use. Patient's elevated bilirubin, macrocytosis, and elevated ALT to AST ratio of 56 and 45 suggested that he had significant alcohol intake. The had reported that he was a drinker but was "able to stop alcohol entirely for lent." He was told to decrease or eliminate alcohol entirely because of the results on LFT testing. 8. Obstructive sleep apnea-hypopnea, severe. Patient has known central sleep apnea and uses a nasal CPAP device and this was continued while here. 9. Constipation. He had normal bowel movements here, once narcotics were stopped. LABORATORY AND IMAGING: Reviewed and summarized above. ALLERGIES: NONE. MEDICATIONS AT DISCHARGE 1. Lipitor 20 mg daily. 2. Coreg 6.25 mg daily. 3. Celebrex 200 mg p.o. b.i.d. p.r.n. 4. Hydroxyzine 25 mg t.i.d. if okayed by PCP. 5. Losartan 25 mg daily. 6. Ferrous gluconate 240 mg daily. 7. Xarelto 15 mg p.o. b.i.d. for 3 weeks with meals, then plan for 20 mg p.o. daily with dinner for 2-1/2 more months. 8. Senokot 8.6 mg p.o. daily or any laxative of choice. 9. Thiamine 100 mg p.o. daily for 1 month. CONDITION AT DISCHARGE: Stable. PHYSICAL EXAMINATION VITAL SIGNS: Blood pressure 120/62, pulse of 64 in sinus rhythm, afebrile, room air saturation 95%. HEENT: Reveals moist oral mucosa, and lid lag. NECK: Without JVD or carotid bruits. CHEST: Clear. HEART: Heart sounds are normal. No murmur. ABDOMEN: Soft, nontender. No organomegaly. Normal bowel sounds. EXTREMITIES: The skin is icteric. His right knee has a fresh vertical scar, which is clean and dry and there is no warmth or swelling. There is no pedal edema. NEUROLOGIC: He still has flight of ideas, tries to cover up, with joking, any answers that he does not know. Otherwise no focal findings on neurologic exam. FOLLOWUP: He was told to see his PCP within 5-7 days and keep the appointment with his Orthopedist in the near future (that has already been scheduled). He is to have clearance by his PCP to resume driving. He may continue physical therapy now. CODE STATUS: FULL CODE. TIME REQUIRED TO COMPLETE THE ENTIRE DISCHARGE, CHART REVIEW, PATIENT EDUCATION, PRESCRIPTION ORDERS, DICTATION: 65 minutes. cc: David Ceballos MD TD: 10/22/2018 16:18 MTDD
[2018-10-22] MEDS ORDERED: LORazepam 2 MG/ML VIAL ONE (17:09)
== END 2018-10-22 12:40 | disposition home or self-care (01) | DRG 896 ==
LOC: EDUNIT# → ED 06:33 → OBS 10:38 → OBSVTOIN 10-19 07:46 → MS2 10-19 15:13
PROVIDERS: ADMIT Internal Medicine; ATTEND Internal Medicine
DX: F11.23 Opioid dependence with withdrawal (principal); K59.00 Constipation, unspecified; Z96.651 Presence of right artificial knee joint; I87.2 Venous insufficiency (chronic) (peripheral); I26.99 Other pulmonary embolism without acute cor pulmonale; R17 Unspecified jaundice; R41.82 Altered mental status, unspecified; I25.10 Atherosclerotic heart disease of native coronary artery without angina pectoris; I49.9 Cardiac arrhythmia, unspecified; I50.9 Heart failure, unspecified; I42.9 Cardiomyopathy, unspecified; R06.89 Other abnormalities of breathing; R09.02 Hypoxemia; Z86.14 Personal history of Methicillin resistant Staphylococcus aureus infection; Z87.891 Personal history of nicotine dependence; T40.2X5A Adverse effect of other opioids, initial encounter; D62 Acute posthemorrhagic anemia; R45.1 Restlessness and agitation; R41.0 Disorientation, unspecified; E78.00 Pure hypercholesterolemia, unspecified; Z78.1 Physical restraint status; G89.18 Other acute postprocedural pain; D53.9 Nutritional anemia, unspecified; Z72.89 Other problems related to lifestyle; K59.03 Drug induced constipation; T40.605A Adverse effect of unspecified narcotics, initial encounter; G47.33 Obstructive sleep apnea (adult) (pediatric); I71.2 Thoracic aortic aneurysm, without rupture; M19.90 Unspecified osteoarthritis, unspecified site; Z96.659 Presence of unspecified artificial knee joint
CPT/HCPCS: 36415; 70450; 71275; 80048; 80053; 80306; 81001; 81003; 82247; 82248; 82607; 82746; 82977; 83540; 83735; 84100; 84466; 85025; 85610; 87086; 93005; 96372; 96374; 96375; 96376; 99283; 99284

== ENCOUNTER 2018-10-24 14:39 | Outpatient (CLI) | payer MEDICARE, OTHER | END 2018-10-24 14:40 | disposition critical access hospital (66) | LOC: EMS 14:39 | PROVIDERS: ATTEND Surgery | DX: R53.1 Weakness (principal); M25.561 Pain in right knee; R19.5 Other fecal abnormalities; W18.39XA Other fall on same level, initial encounter; Y92.008 Other place in unspecified non-institutional (private) residence as the place of occurrence of the external cause | CPT/HCPCS: A0425; A0427 ==

== ENCOUNTER 2018-10-24 14:58 | Emergency (ER) | payer MEDICARE, OTHER ==
[2018-10-24] MEDS ORDERED: MORPHINE 2 MG/ML CARPUJECT IVP STA (15:34)
--- NOTE | 2018-10-24 15:38 | ED Physician Documentation ---
History of Present Illness - Stated complaint Stated Complaint: WEAKNESS - Chief complaint Chief Complaint: General - History obtained from History obtained from: Patient, Family () - History of Present Illness Timing: Today (This is a 67-year-old gentleman who has a history of viral cardiomyopathy but he had a preop echo per him with an EF of 50% last month. He subsequently had his knee replaced and developed postoperative opioid-induced constipation as well as a small PE for which he was placed on Xarelto. They have taken him off of all the oxycodone he has uncontrolled pain in his right l eg and today he had a weakness episode where he had a near syncopal episode while walking in the hallway. He hit his knee going down but did not hit his head or lose consciousness. The pain in the knee and leg is severe.) Review of Systems Ten Systems: 10 systems reviewed and negative Constitutional: reports: Fatigue. denies: Fever, Chills Cardiac: denies: Chest pain / pressure, Palpitations Respiratory: denies: Dyspnea, Cough GI: denies: Abdominal Pain, Nausea, Vomiting, Constipation PD PAST MEDICAL HISTORY - Past Medical History Cardiovascular: Congestive heart failure, High cholesterol, Coronary artery disease, Arrhythmia Respiratory: Sleep apnea Neuro: None Endocrine/Autoimmune: None GI: None : None HEENT: None Psych: None Musculoskeletal: Osteoarthritis, Other Derm: Other drug resistant infections, Other - Past Surgical History Past Surgical History: Yes Ortho: Knee replacement, Shoulder arthroplasty - Present Medications Home Medications: Ambulatory Orders Medication Instructions Recorded Confirmed Atorvastatin Calcium [Lipitor] 20 mg PO DAILY 04/07/15 10/18/18 Carvedilol [Coreg] 6.25 mg PO DAILY 04/07/15 10/18/18 Celecoxib [CeleBREX] 200 mg PO BID 10/18/18 10/18/18 Losartan Potassium 25 mg PO DAILY 10/18/18 10/18/18 hydrOXYzine pamoate [Hydroxyzine 25 mg PO TID PRN 10/18/18 10/18/18 Pamoate] Ferrous Gluconate 240 mg PO DAILY #30 tablet 10/22/18 Rivaroxaban [Xarelto] 15 mg PO BIDWM #60 tablet 10/22/18 Senna [Senokot] 8.6 mg PO DAILY #30 tablet 10/22/18 Thiamine [Vitamin B-1] 100 mg PO DAILY #30 tablet 10/22/18 Gabapentin 100 mg PO TID #90 capsule 10/24/18 - Allergies Allergies/Adverse Reactions: Allergies Allergy/AdvReac Type Severity Reaction Status Date / Time No Known Drug Allergies Allergy Verified 10/24/18 15:10 - Social History Does the pt smoke?: No Smoking Status: Never smoker Does the pt drink ETOH?: Yes Does the pt have substance abuse?: No - Immunizations Immunizations are current?: No Immunizations: TDAP >10years/unknown - POLST Patient has POLST: No POLST Status: Full Code PD ED PE NORMAL - Vitals Vital signs reviewed: Yes - General General: Alert and oriented X 3, No acute distress - HEENT HEENT: PERRL, EOMI - Neck Neck: Supple, no meningeal sign, No bony TTP - Cardiac Cardiac: RRR, No murmur, Other (Mostly in a sinus rhythm on monitor but he is having some small episodes of brief A. fib and relatively frequent PVCs.) - Respiratory Respiratory: No respiratory distress, Clear bilaterally - Abdomen Abdomen: Non tender, Non distended - Back Back: No CVA TTP, No spinal TTP - Extremities Extremities: Other (Steri-Strips are intact on the anterior right knee but there is a little blood on the dressing at the superior portion from where he hit it. He is diffusely tender about the knee and leg. Normal pedal pulses and sensation and cap refill.) - Neuro Neuro: Alert and oriented X 3, Normal speech Results - Vitals Vitals: Vital Signs - 24 hr 10/24/18 10/24/18 10/24/18 15:04 15:45 16:31 Temperature 36.1 C L Heart Rate 60 64 69 Respiratory 16 23 20 Rate Blood Pressure 133/72 H 119/71 132/71 H O2 Saturation 97 99 97 Oxygen O2 Source Room air - EKG (time done) 1513 Rate: Rate (enter#) (60) Rhythm: NSR (With PVCs) [place]: Normal Intervals: Normal CO QRS: LVH Ischemia: Normal ST segments Computer interpretation: Agree with computer - Labs Labs: Laboratory Tests 10/24/18 10/24/18 10/24/18 15:43 15:43 15:43 WBC 15.8 H RBC 3.43 L Hgb 10.8 L Hct 32.3 L MCV 94.2 H MCH 31.6 H MCHC 33.6 RDW 14.3 Plt Count 525 H MPV 7.9 Neut # (Auto) 13.0 H Lymph # (Auto) 1.6 [place] # (Auto) 1.0 Eos # (Auto) 0.2 Baso # (Auto) 0.1 Absolute Nucleated RBC 0.01 Nucleated RBC % 0.1 Sodium 132 L Potassium 3.8 Chloride 103 Carbon Dioxide 21 Anion Gap 8.0 BUN 19 Creatinine 0.9 Estimated GFR (MDRD) 84 L Glucose 125 H Calcium 8.8 Magnesium 2.1 Total Bilirubin 0.8 AST 30 ALT 31 Alkaline Phosphatase 59 Troponin I < 0.04 B-Natriuretic Peptide Total Protein 7.2 Albumin 3.5 Globulin 3.7 Albumin/Globulin Ratio 0.9 L Lipase 79 H 10/24/18 15:43 WBC RBC Hgb Hct MCV MCH MCHC RDW Plt Count MPV Neut # (Auto) Lymph # (Auto) [place] # (Auto) Eos # (Auto) Baso # (Auto) Absolute Nucleated RBC Nucleated RBC % Sodium Potassium Chloride Carbon Dioxide Anion Gap BUN Creatinine Estimated GFR (MDRD) Glucose Calcium Magnesium Total Bilirubin AST ALT Alkaline Phosphatase Troponin I B-Natriuretic Peptide 48 Total Protein Albumin Globulin Albumin/Globulin Ratio Lipase PD MEDICAL DECISION MAKING - ED course ED course: 67-year-old gentleman who is postop from a right knee replacement with postoperative pulmonary embolism presents with a week episode today hitting his knee. The x-ray shows no malalignment of the hardware. He did have some ectopy and brief runs of rate controlled A. fib on the monitor. Case was discussed by phone with Dr. Acevedo who admitted him last time and recommended we stay away from narcotics for pain control because of how sensitive he is to them and we agreed on gabapentin for his pain to go home with.I suspect the episode today was multifactorial due to dehydration, new atrial fibrillation which seems to be rate controlled, pain and anxiety. Departure - Departure Disposition: 01 Home, Self Care Clinical Impression: Post-operative pain, Muscle weakness Pulmonary emboli Qualifiers: Pulmonary embolism type: other Chronicity: acute Acute cor pulmonale presence: without acute cor pulmonale Qualified Code(s): I26.99 - Other pulmonary embolism without acute cor pulmonale Atrial fibrillation Qualifiers: Atrial fibrillation type: paroxysmal Qualified Code(s): I48.0 - Paroxysmal atrial fibrillation Condition: Good Record reviewed to determine appropriate education?: Yes Instructions: Atrial Fibrillation Dc Prescriptions: Gabapentin 100 mg PO TID #90 capsule Comments: Continue current medications including Tylenol. Follow-up with your surgeons PA tomorrow for routine visit and also follow-up with your fishing rod mechanic with copies of the rhythm strip and EKG from today. Return for any new or worsening symptoms.
[2018-10-24 15:50] LABS: BASOPHILS # (AUTO) 0.1 10^3/uL (0.0-0.1); BASOPHILS % (AUTO) 0.5 %; EOSINOPHILS # (AUTO) 0.2 10^3/uL (0.0-0.7); EOSINOPHILS % (AUTO) 1.4 %; HGB - HEMOGLOBIN 10.8 g/dL (14.0-18.0); LYMPHOCYTES # (AUTO) 1.6 10^3/uL (1.5-3.5); MEAN CORPUSCULAR HEMOGLOBIN 31.6 pg (27.0-31.0); MEAN CORPUSCULAR HGB CONC 33.6 g/dL (32.0-36.0); MEAN CORPUSCULAR VOLUME 94.2 fL (80.0-94.0); MEAN PLATELET VOLUME 7.9 fL (7.4-11.4); MONOCYTES % (AUTO) 6.2 %; NEUTROPHILS % (AUTO) 81.9 %; PLT - PLATELET COUNT 525 10^3/uL (130-450); RED BLOOD COUNT 3.43 10^6/uL (4.70-6.10); RED CELL DISTRIBUTION WIDTH 14.3 % (12.0-15.0); WHITE BLOOD COUNT 15.8 x10^3/uL (4.8-10.8)
[2018-10-24 16:08] LABS: ALBUMIN 3.5 g/dL (3.2-5.5); ALBUMIN/GLOBULIN RATIO 0.9 (1.0-2.2); BILIRUBIN,TOTAL 0.8 mg/dL (0.2-1.0); CALCIUM 8.8 mg/dL (8.5-10.3); CREATININE 0.9 mg/dL (0.6-1.2); MAGNESIUM 2.1 mg/dL (1.7-2.8); TOTAL PROTEIN 7.2 g/dL (6.7-8.2)
--- NOTE | 2018-10-24 16:26 | XRAY Report ---
Reason: knee pain Procedure Date: 10/24/2018 Accession Number: [id number] / [id number] Procedure: XR - Knee 2 View RT CPT Code: FULL RESULT: EXAM: RIGHT KNEE RADIOGRAPHY EXAM DATE: 10/24/2018 03:59 PM. CLINICAL HISTORY: Worsening knee pain. Right knee replacement 10/09/2018. COMPARISON: None. TECHNIQUE: 2 views. FINDINGS: Bones and Joints: No fractures or bone lesion. A 3 component right knee arthroplasty has been performed. There is expected alignment of components. No unexpected periprosthetic lucency or other evidence of loosening. Soft Tissues: No knee effusion. Arterial calcification noted. IMPRESSION: Expected appearance of right knee arthroplasty, with no acute findings. RADIA
[2018-10-24] MEDS ORDERED: ACETAMINOPHEN 500 MG TABLET PO STA (16:45)
[2018-10-24] MEDS ORDERED: GABAPENTIN 100 MG CAPSULE PO STA (16:45)
[2018-10-24 16:50] VITALS: BP 129/70
== END 2018-10-24 17:05 | disposition home or self-care (01) ==
LOC: EDUNIT# → ED 14:58
DX: G89.18 Other acute postprocedural pain (principal); M25.561 Pain in right knee; Z96.651 Presence of right artificial knee joint; M62.81 Muscle weakness (generalized); I26.99 Other pulmonary embolism without acute cor pulmonale; I48.0 Paroxysmal atrial fibrillation; I49.3 Ventricular premature depolarization; E86.0 Dehydration; F41.9 Anxiety disorder, unspecified; I50.9 Heart failure, unspecified; Z79.01 Long term (current) use of anticoagulants
CPT/HCPCS: 36415; 73560; 80053; 83690; 83735; 83880; 84484; 85025; 93005; 96374; 99283; 99284; A9270

== ENCOUNTER 2018-12-22 15:20 | Outpatient (CLI) | payer MEDICARE, OTHER ==
--- NOTE | 2018-12-23 11:14 | XRAY Report ---
Reason: PULMONARY EMBOLISM,COUGH Procedure Date: 12/22/2018 Accession Number: [id number] / [id number] Procedure: WCP - Chest 2 View X-Ray CPT Code: 35086 FULL RESULT: EXAM: CHEST RADIOGRAPHY EXAM DATE: 12/22/2018 03:36 PM. CLINICAL HISTORY: Pulmonary embolism, cough. COMPARISON: None. TECHNIQUE: 2 views. FINDINGS: Lungs/Pleura: No focal opacities evident. No pleural effusion. No pneumothorax. Normal volumes. Mediastinum: Heart and mediastinal contours are unremarkable. Other: None. IMPRESSION: Normal 2-view chest radiography. RADIA
== END 2018-12-22 15:21 | disposition home or self-care (01) ==
LOC: DI.WCP 15:20
PROVIDERS: ATTEND Family Medicine
DX: I26.99 Other pulmonary embolism without acute cor pulmonale (principal); R05 Cough; D72.829 Elevated white blood cell count, unspecified
CPT/HCPCS: 36415; 71046; 80053; 85025

== ENCOUNTER 2018-12-22 15:43 | Outpatient (CLI) | payer MEDICARE, OTHER ==
[2018-12-22 19:15] LABS: BASOPHILS # (AUTO) 0.1 10^3/uL (0.0-0.1); BASOPHILS % (AUTO) 0.8 %; EOSINOPHILS # (AUTO) 0.4 10^3/uL (0.0-0.7); EOSINOPHILS % (AUTO) 4.6 %; HGB - HEMOGLOBIN 14.6 g/dL (14.0-18.0); LYMPHOCYTES # (AUTO) 2.7 10^3/uL (1.5-3.5); LYMPHOCYTES % (AUTO) 31.8 %; MEAN CORPUSCULAR HEMOGLOBIN 30.5 pg (27.0-31.0); MEAN CORPUSCULAR HGB CONC 32.7 g/dL (32.0-36.0); MEAN CORPUSCULAR VOLUME 93.3 fL (80.0-94.0); MEAN PLATELET VOLUME 9.3 fL (7.4-11.4); MONOCYTES # (AUTO) 0.9 10^3/uL (0.0-1.0); MONOCYTES % (AUTO) 10.7 %; NEUTROPHILS # (AUTO) 4.4 10^3/uL (1.5-6.6); NEUTROPHILS % (AUTO) 52.1 %; PLT - PLATELET COUNT 251 10^3/uL (130-450); RED BLOOD COUNT 4.78 10^6/uL (4.70-6.10); RED CELL DISTRIBUTION WIDTH 15.3 % (12.0-15.0); WHITE BLOOD COUNT 8.4 x10^3/uL (4.8-10.8)
[2018-12-22 19:31] LABS: ALBUMIN 4.5 g/dL (3.2-5.5); ALBUMIN/GLOBULIN RATIO 1.5 (1.0-2.2); BILIRUBIN,TOTAL 0.3 mg/dL (0.2-1.0); CALCIUM 9.7 mg/dL (8.5-10.3); TOTAL PROTEIN 7.6 g/dL (6.7-8.2)
== END 2018-12-22 23:59 | disposition home or self-care (01) ==
LOC: LAB.WCP 15:43
PROVIDERS: ATTEND Family Medicine
DX: R05 Cough (principal); D72.829 Elevated white blood cell count, unspecified
CPT/HCPCS: 36415; 80053; 85025

== ENCOUNTER 2019-01-03 09:21 | Outpatient (CLI) | payer MEDICARE, OTHER | END 2019-01-03 09:22 | disposition home or self-care (01) | LOC: SC 09:21 | PROVIDERS: ATTEND Nurse Practitioner Family | DX: G47.33 Obstructive sleep apnea (adult) (pediatric) (principal); G47.31 Primary central sleep apnea | CPT/HCPCS: 99214; G0463; 99212 ==

== ENCOUNTER 2019-01-05 13:03 | Outpatient (CLI) | payer MEDICARE, OTHER ==
[~2019-01-05 13:03] MED LIST: ALBUTEROL NEB 2.5 MG/3 ML INH ONE
== END 2019-01-05 13:04 | disposition home or self-care (01) ==
LOC: RT 13:03
PROVIDERS: ATTEND Family Medicine
DX: R05 Cough (principal); J20.9 Acute bronchitis, unspecified
CPT/HCPCS: 94010; 94729

== ENCOUNTER 2019-01-07 10:35 | Outpatient (CLI) | payer MEDICARE, OTHER ==
[2019-01-07] MEDS ORDERED: IOVERSOL 320 100 ML VIAL IVP ONE (10:54)
--- NOTE | 2019-01-07 11:52 | CT Report ---
Reason: GROSS HEMATAURIA Procedure Date: 01/07/2019 Accession Number: [id number] / [id number] Procedure: CT - Abdomen/Pelvis WO CPT Code: FULL RESULT: EXAM: CT ABDOMEN AND PELVIS (CT KUB) EXAM DATE: 01/07/2019 11:12 AM. CLINICAL HISTORY: Gross hematuria. Patient on Xarelto. COMPARISONS: Chest CT 10/18/2018. TECHNIQUE: Routine axial helical CT imaging was performed through the abdomen and pelvis without IV contrast. Reconstructions: Coronal and sagittal. In accordance with CT protocol optimization, one or more of the following dose reduction techniques were utilized for this exam: automated exposure control, adjustment of mA and/or KV based on patient size, or use of iterative reconstructive technique. FINDINGS: Lung Bases: There is a stable 6 mm solid pulmonary nodule 6/3. Remaining lung bases are unremarkable. Right Kidney/Ureter: No stones, hydronephrosis, or hydroureter. No perinephric fat stranding. Left Kidney/Ureter: No stones, hydronephrosis, or hydroureter. No perinephric fat stranding. Other Solid Organs: The spleen is markedly atrophic with lobular contour and central calcification presumably sequela of prior infarction or inflammation. Noncontrast images of the other solid organs are grossly unremarkable. Gallbladder/Bile Ducts: Unremarkable. Peritoneal Cavity: Without CT evidence of diverticulitis. No free fluid, free air or annie adenopathy. Bowel is grossly unremarkable. Pelvic Organs: No bladder stones or wall thickening. Noncontrast images of the visualized pelvic organs are unremarkable. Vasculature: Unremarkable. Other: None. IMPRESSION: 1. No urinary tract stones or hydronephrosis. Normal urinary bladder morphology. Etiology of hematuria is not identified. 2. A 6 mm pulmonary nodule right middle lobe. If patient is high risk, recommend follow-up CT in 6-12 months, if patient is low risk, recommend follow-up CT in 12 months to ensure stability. 3. Stable splenic atrophy with central calcifications as described. RADIA
== END 2019-01-07 10:36 | disposition home or self-care (01) ==
LOC: DI 10:35
PROVIDERS: ATTEND Family Medicine
DX: R31.0 Gross hematuria (principal); R91.1 Solitary pulmonary nodule; D73.0 Hyposplenism
CPT/HCPCS: 74176

== ENCOUNTER 2019-04-12 09:20 | Outpatient (CLI) | payer MEDICARE, OTHER | END 2019-04-12 09:21 | disposition home or self-care (01) | LOC: SC 09:20 | PROVIDERS: ATTEND Nurse Practitioner Family | DX: G47.33 Obstructive sleep apnea (adult) (pediatric) (principal); G47.31 Primary central sleep apnea | CPT/HCPCS: 99214; G0463; 99212 ==

== ENCOUNTER 2019-07-20 15:52 | Outpatient (CLI) | payer MEDICARE, OTHER ==
--- NOTE | 2019-07-20 16:57 | SLEEP CARE CONSULTATION ---
Information from patient questionnaire entered by Maria Luisa Phelps. I have reviewed and concur with the information entered by Maria Luisa Phelps. This document represents the service I personally performed and the decisions made by me, Akosua Fuentes, RN, MSN, MORTGAGE ORIGINATOR. History of Present Illness Previous diagnosis: Severe, Obstructive Sleep Apnea-Hypopnea Syndrome, Central Sleep Apnea-Hypopnea Syndrome AHI: 30.4 Reason for CPAP/BiPAP follow up: other (4 month) Equipment type: BiPAP Equipment obtained from: [email or web address] Mask style: Nasal pillows (Brevida) Mask brand: Shopsy Backup mask available: No (Dreamweare nasal ) Last cushion change: 2-3 weeks ago HPI additional information: BiPap was started but patient had higher AHI with mostly in Centrals even after lowering and adjusting pressure with Dr. Burnett review. Thus he was restarted on his CPAP as the residual was lower with CPAP then with BiPAP. The BiPAP was returned. CPAP Compliance Data - Data Reviewed with Patient Average duration of nightly device use: 9.1 Compliance rate %: 93.3 (100% with CPAP past 14 days at [id number]) Current pressure setting (cmH2O): 11/6 Humidity settin Heated hose settin Average residual AHI: 19.6 (CPAP AHI 6.6 wtih 34 minutes of leaks average) Central apnea: 11.5 Obstructive apnea: 3.0 Hypopnea: 5.1 Average large leak: 38 mins 2 sec Subjective Patient concerns: reports: mask discomfort (rare irritation, none now), mask leak noise (most nights). denies: aerophagia, air blowing in eyes, condensation in mask/hose, nasal congestion, dry mouth, nose, throat, epistaxis Observed to snore while using device: No Current pressure setting perceived as: comfortable On therapy, patient: reports: sleeping better (intermittently since his surgery complications in October ), awakening more refreshed (intermittently), more rested overall (intermittently). denies: drowsiness while driving Initial [place] Sleepiness Scale score: 9 Current [place] Sleepiness Scale score: 8 Allergies and Home Medications Known drug allergies: Yes (oxycodone, tramadol) Home medication list reviewed: Yes Allergy and home medication list: Carvedilol 6.25mg tab twice daily Losartan Potassium 25mg tab one daily Lipitor 20mg tab one daily at bedtime Aspirin 81mg tab one daily Joint Health tablet Tab one three times daily Multi vitamin Tab one daily Vitamin D3 2000IU tab one daily COQ10 100mg cap one daily Turmeric 1000mg cap one daily Glucosamine Chondroitin Tab one twice daily Review of Systems Review of systems same as previous: Yes Physical Exam Blood Pressure: 120/70 Cuff size: long Heart Rate: 60 O2 Saturation: 96 Height: 6 ft Weight: 223 lb Body Mass Index: 30.2 BMI Classification: Obesity Class 1 Impression and Plan 1. Central and Obstructive Sleep Apnea-Hypopnea Syndrome, severe, with good treatment compliance and slightly elevated AHI with past use of CPAP. As noted above, BiPAP therapy was started as recommended on titration study but caused increase in residual AHI especially centrals. BiPAP pressure adjustments were made and residual was reduced but not as effectively as with his CPAP previously used. Thus after conferring with Dr. Alvarenga, the BiPAP was stopped and returned and patient resumed CPAP therapy the past 2 weeks. On CPAP therapy, the patient has better sleep quality and is more rested overall intermittently. His sleep efficiency has been less since his surgery and post operative hallucinations earlier this year per patient. Review of past compliance reports shows that his residual AHI can be elevated when mask leaks. Patient advised to change mask cushion regularly and ensure cushion is cleaned daily to reduce mask leaks. He would like to stay with current mask as most comfortable so far. His weight has also increased slightly - which can also increase apnea risk and CPAP pressure requirements. Patient advised to lose weight. No change will be done on CPAP pressure until more time is seen with use. Patient will call if apnea residual is increased as has done in past. Patient's apnea severity and rationale for treatment to reduce apnea, improve sleep quality and reduce cardiovascular and cerebrovascular events was reviewed. I also reviewed the benefit of consistent device use of CPAP for arrhythmia and his cardiomyopathy. * Continue CPAP pressure at 10-14 cmH2O * Change mask cushion more regularly. * Notify me if snoring with mask or feeling that the pressure is too much or too little * Attempt to lose weight * Return for follow up in 3months , or sooner if concerns arise I spent 100% of this 30 minute visit face to face with the patient with greater than 50% of this was spent time counseling the patient and coordination of care.
[2019-07-20 16:58] VITALS: BP 120/70
== END 2019-07-20 15:53 | disposition home or self-care (01) ==
LOC: SC 15:52
PROVIDERS: ATTEND Nurse Practitioner Family
DX: G47.33 Obstructive sleep apnea (adult) (pediatric) (principal); G47.31 Primary central sleep apnea
CPT/HCPCS: 99214; G0463; 99212

== ENCOUNTER 2019-10-18 09:27 | Outpatient (CLI) | payer MEDICARE, OTHER ==
[2019-10-18 10:41] VITALS: BP 108/60
--- NOTE | 2019-10-18 10:41 | SLEEP CARE CONSULTATION ---
Information from patient questionnaire entered by Nova Fernández. I have reviewed and concur with the information entered by Nova Fernández. This document represents the service I personally performed and the decisions made by me, Akosua Fuentes, RN, MSN, CANAL SUPERINTENDENT. History of Present Illness Previous diagnosis: Severe, Obstructive Sleep Apnea-Hypopnea Syndrome, Central Sleep Apnea-Hypopnea Syndrome AHI: 30.4 Reason for follow up: three month Equipment type: CPAP Equipment obtained from: [facility] (getting equipment better than previous DME) Mask style: Nasal pillows (Brevida) Mask brand: [employer] Backup mask available: Yes Last cushion change: changes monthly - last changed a couple of weeks ago Prior sleep studies: Yes CPAP Compliance Data - Data Reviewed with Patient Average duration of nightly device use: 8h 2m Compliance rate %: 74.4 (04-21-19 to 10-17-19) Current pressure setting (cmH2O): 10-14 Humidity settin Heated hose setting: off Average residual AHI: 9.3 Central apnea: 1.8 Obstructive apnea: 3.3 Hypopnea: 4.3 Average large leak: 48m 6s Subjective Missed days of use due to: reports: other (while using BiPAP therapy) Patient concerns: reports: mask leak noise (occasionally and easily adjusted ), dry mouth, nose, throat (past 3-4 weeks - humidity is 3 and heated hose off- water being used. ), other (uses a So Clean device and wonders if increase in noise due to connection ). denies: mask discomfort, air blowing in eyes, condensation in mask/hose, nasal congestion, epistaxis Observed to snore while using device: No Current pressure setting perceived as: comfortable On therapy, patient: reports: sleeping better, awakening more refreshed, being more awake and alert during the day, more rested overall. denies: drowsiness while driving Initial [place] Sleepiness Scale score: 9 Current [place] Sleepiness Scale score: 9 Allergies and Home Medications Known drug allergies: Yes Home medication list reviewed: Yes (He stopped blood thinner after negative cardiac monitoring -Holter monitor ) Allergy and home medication list: Losartan 25mg po daily Carvedilol 6.25mg atorvastatin 20mg Review of Systems Review of systems same as previous: No (his recent echo showed improved injection fraction from 50 to 55. ) Physical Exam Blood Pressure: 108/60 Cuff size: long Heart Rate: 52 O2 Saturation: 98 Height: 6 ft Weight: 227 lb 9.6 oz Weight change since last visit: gained 4 pounds Body Mass Index: 30.9 BMI Classification: Obesity Class 1 Impression and Plan 1. Central and Obstructive Sleep Apnea-Hypopnea Syndrome, severe, with good treatment compliance and better apnea control. His residual is 9.3 on CPAP and was 19.6 on BiPAP last visit note. On CPAP therapy, the patient has better sleep quality and is more rested overall. To reduce oral dryness, I will have him increase the humidity slightly to 4. Since the weather is now cooler and he sleeps in a cool room, he can also try a low setting of the hose to insulate hose from moisture loss. To reduce mask leaks, I advised him to change cushion from monthly to every 2 weeks. For concerns about leak noise from So [employer] connection, he discussed using CPAP without the connection to see if less. He is also advised to reach out to the [employer] company for any concerns and or check with the RT at [facility] if they are aware of any problems in connection. Due to complexity of his apnea and the variation of his residual AHI , I will confer with Dr. Alvarenga to see if any changes in CPAP range and for him to follow up with patient. Patient is noting from 3 to 28 on his daily review of reading of AHI on his device. I explained some that appears to be related to his mask leaks ,other is unknown. Patient agreed it plan. I will contact him after I confer with Dr. Alvarenga if any changes in recommendations and when next follow up will be scheduled. Patient's apnea severity and rationale for treatment to reduce apnea, improve sleep quality and reduce cardiovascular and cerebrovascular events was reviewed. I also reviewed the benefit of consistent device use of CPAP for hypertension, cardiac disease. His ejection fraction has improved some since use of his CPAP. ,. Since apnea more severe supine,if he is unable to use CPAP, he is advised to avoid supine sleeping with pillow positioning and elevated head of bed to reduce apnea risk. * Continue CPAP pressure at 10-14 cmH2O * Check So Clean connection as a source of leaks * Adjust humidity / heated hose. * Notify me if snoring with mask or feeling that the pressure is too much or too little * Attempt to lose weight * Call this office if any problems using CPAP * Return for follow up with Dr. Alvarenga, or sooner if concerns arise * * Addendum 12:[address] Alvarenga. After review of all his past compliance reports and sleep studies, he advised to change the autoCPAP pressure to [id number]. Next follow up to be scheduled in 2 months. I left a message for patient to contact this office to schedule a follow up in 2 months and of pressure change. He is also to contact me if any further questions. Time Spent with Patient (minutes): 45 I spent 100% of this visit face to face with the patient with greater than 50% of this was spent time counseling the patient and coordination of care. Patient had many questions that were answered.
== END 2019-10-18 09:28 | disposition home or self-care (01) ==
LOC: SC 09:27
PROVIDERS: ATTEND Nurse Practitioner Family
DX: G47.33 Obstructive sleep apnea (adult) (pediatric) (principal); G47.31 Primary central sleep apnea
CPT/HCPCS: 99215; G0463; 99212

== ENCOUNTER 2019-12-01 10:00 | Outpatient (CLI) | payer MEDICARE, OTHER | END 2019-12-01 23:59 | disposition home or self-care (01) | LOC: LAB.WCP 10:00 | PROVIDERS: ATTEND Family Medicine | DX: L03.115 Cellulitis of right lower limb (principal) | CPT/HCPCS: 87070; 87205 ==

== ENCOUNTER 2020-03-26 09:33 | Outpatient (CLI) | payer MEDICARE, OTHER ==
--- NOTE | 2020-03-26 10:47 | SLEEP CARE CONSULTATION ---
Information from patient questionnaire entered by Maria Luisa Phelps. I have reviewed and concur with the information entered by Maria Luisa Phelps. This document represents the service I personally performed and the decisions made by me, Penny Alvarenga MD, [facility]. History of Present Illness Service Date and Time: 03/26/2020 0933 Previous diagnosis: Severe, Obstructive Sleep Apnea-Hypopnea Syndrome AHI: 30.4 (in 2018) Reason for follow up: other (5 month) Equipment type: CPAP Equipment obtained from: [facility] Mask style: Nasal Mask brand: Dorman [employer] Prior sleep studies: Yes Year and Where: 2018 - [facility] Type of Sleep Study: Polysomnography HPI additional information: The new pressure setting did not bother him. He cannot sleep without his CPAP. He does feel better on the treatment. CPAP Compliance Data - Data Reviewed with Patient Average duration of nightly device use: 7.45 Compliance rate %: 93.3 (90 days) Current pressure setting (cmH2O): 8-12 Humidity settin Heated hose settin Average residual AHI: 17.1 Average large leak: 24 min 8 sec Subjective Patient concerns: reports: other (high AHI) Initial [place] Sleepiness Scale score: 9 (in 2018) Current [place] Sleepiness Scale score: 7 Allergies and Home Medications Drug allergies reviewed: Yes Home medication list reviewed: Yes Physical Exam Vital signs obtained and entered by: deferred due to COVID Height: 6 ft Impression and Plan CHET. Based on the efficacy report, I will raise the pressure to 12 - 17 cmH2O because most apneas are obstructive. Plan: Pressure raised on his machine. Return for a F/U in one month. Visit Type: In Office Time Spent with Patient (minutes): 15 Provider Statement: I spent 100% of the Face to Face Visit with the patient with greater than 50% spent counseling the patient and coordination of care.
== END 2020-03-26 09:34 | disposition home or self-care (01) ==
LOC: SC 09:33
PROVIDERS: ATTEND Internal Medicine Pulmonary Disease
DX: G47.33 Obstructive sleep apnea (adult) (pediatric) (principal)
CPT/HCPCS: 99213; G0463; 99212

== ENCOUNTER 2020-10-31 07:56 | Outpatient (CLI) | payer MEDICARE, OTHER ==
[2020-10-31 11:51] LABS: BASOPHILS # (AUTO) 0.1 10^3/uL (0.0-0.1); BASOPHILS % (AUTO) 1.2 %; EOSINOPHILS # (AUTO) 0.5 10^3/uL (0.0-0.7); HGB - HEMOGLOBIN 15.1 g/dL (14.0-18.0); LYMPHOCYTES # (AUTO) 2.8 10^3/uL (1.5-3.5); LYMPHOCYTES % (AUTO) 40.6 %; MEAN CORPUSCULAR HGB CONC 32.8 g/dL (32.0-36.0); MEAN CORPUSCULAR VOLUME 94.5 fL (80.0-94.0); MONOCYTES # (AUTO) 0.6 10^3/uL (0.0-1.0); MONOCYTES % (AUTO) 8.7 %; NEUTROPHILS # (AUTO) 2.9 10^3/uL (1.5-6.6); NEUTROPHILS % (AUTO) 42.2 %; PLT - PLATELET COUNT 270 10^3/uL (130-450); RED BLOOD COUNT 4.87 10^6/uL (4.70-6.10); RED CELL DISTRIBUTION WIDTH 15.1 % (12.0-15.0); WHITE BLOOD COUNT 6.9 x10^3/uL (4.8-10.8)
[2020-10-31 12:02] LABS: ALBUMIN 4.3 g/dL (3.2-5.5); ALBUMIN/GLOBULIN RATIO 1.2 (1.0-2.2); ALKALINE PHOSPHATASE 53 IU/L (42-121); ALT ALANINE AMINOTRANSFERASE 21 IU/L (10-60); AST ASPARTATE AMINOTRANSFERASE 21 IU/L (10-42); BILIRUBIN,TOTAL 0.9 mg/dL (0.2-1.0); BUN - BLOOD UREA NITROGEN 27 mg/dL (6-20); CALCIUM 9.6 mg/dL (8.5-10.3); CARBON DIOXIDE - CO2 24 mmol/L (21-32); CHLORIDE 101 mmol/L (101-111); CHOL/HDL RATIO 3.1 (<5.0); CHOLESTEROL 190 mg/dL; CREATININE 1.3 mg/dL (0.6-1.2); GLUCOSE 104 mg/dL (70-100); HDL CHOLESTEROL 62 mg/dL; LDL CHOLESTEROL,CALCULATED 116 mg/dL; LDL/HDL RATIO 1.9 (<3.6); TOTAL PROTEIN 7.9 g/dL (6.7-8.2); VLDL CHOLESTEROL 12 mg/dL
== END 2020-10-31 23:59 | disposition home or self-care (01) ==
LOC: LAB.WCP 07:56
PROVIDERS: ATTEND Family Medicine
DX: I10 Essential (primary) hypertension (principal); Z12.5 Encounter for screening for malignant neoplasm of prostate; E78.5 Hyperlipidemia, unspecified; R53.83 Other fatigue; D72.829 Elevated white blood cell count, unspecified
CPT/HCPCS: 36415; 80053; 80061; 84443; 85025; G0103; 83721; 84153

== ENCOUNTER 2021-01-22 08:00 | Outpatient (CLI) | payer MEDICARE, OTHER | END 2021-01-22 23:59 | disposition home or self-care (01) | LOC: LAB.WCP 08:00 | PROVIDERS: ATTEND Family Medicine | DX: R53.83 Other fatigue (principal) | CPT/HCPCS: 36415; 82306 ==

== ENCOUNTER 2021-10-24 14:14 | Outpatient (CLI) | payer MEDICARE, OTHER ==
--- NOTE | 2021-10-24 14:34 | SLEEP CARE CONSULTATION ---
Information from patient questionnaire entered by Carlos Pepper MA. I have reviewed and concur with the information entered by Carlos Pepper MA. This document represents the service I personally performed and the decisions made by , Brittney Glez ARNP. History of Present Illness Service Date and Time: 10/24/2021 1400 Previous diagnosis: Severe, Obstructive Sleep Apnea-Hypopnea Syndrome AHI: 30.4 (in 2018) Reason for follow up: annual (LAST SEEN 2019) Equipment type: CPAP Equipment obtained from: Other ([facility]; first order made but need updated prescription) Mask style: Nasal Backup mask available: Yes (old mask) Last cushion change: 2 weeks ago Prior sleep studies: Yes Year and Where: 2018 - [facility] HPI additional information: ISABELL GUZMÁN was diagnosed to have severe, AHI 30.4, obstructive sleep apnea-hypopnea syndrome and returns via video Telehealth visit today for CPAP therapy annual follow-up. Sleep Study - Results Prior sleep studies: Yes [facility] Compliance Data - Data Reviewed with Patient Average duration of nightly device use: 5 HOURS 21 MINUTES Compliance rate %: 68.9 Current pressure setting (cmH2O): 12-17 Humidity settin Heated hose setting: OFF Average residual AHI: 6.1 Average large leak: 1 HOUR 4 MINUTES Subjective Missed days of use due to: reports: illness Patient concerns: reports: mask leak noise. denies: aerophagia, mask discomfort, air blowing in eyes, condensation in mask/hose, nasal congestion, dry mouth, nose, throat, epistaxis, other Observed to snore while using device: No Current pressure setting perceived as: comfortable On therapy, patient: reports: sleeping better, awakening more refreshed, being more awake and alert during the day, more rested overall. denies: drowsiness while driving Initial [place] Sleepiness Scale score: 9 (in 2018) Current [place] Sleepiness Scale score: 5 Allergies and Home Medications Home medication list reviewed: Yes (Sinemet ) Review of Systems Review of systems same as previous: No (Parkinson's) Physical Exam Vital signs obtained and entered by: Telehealth visit to reduce exposure during Covid Pandemic Height: 6 ft Impression and Plan 1. Obstructive Sleep Apnea-Hypopnea Syndrome, severe, with good treatment compliance and fair apnea control with minimal elevation of residual AHI. On CPAP therapy, the patient has better sleep quality and is more rested overall. Patient states he is getting cold air from his machine. He states he has a heated hose but the feature is locked on his machine. I will have this unlocked so he can adjust as needed. He voiced understanding. Patient has a Dreamstation. Patient has already registered their device for the recall. Patient denies any b lack particles seen in machine or hoses, any unusual odors coming from device. Patient has not experienced any physical symptoms such as upper airway irritation, headache, skin or eye irritation, asthma, nausea/vomiting, difficulty breathing or chest pain. If patient is not able to sleep due to waking up choking, gasping for air or other respiratory distress that they may decide to continue using it until it is either replaced or repaired. Patient is continuing to use his device and monitor for any debris. Patient needs a prescription for supplies sent to new DME in order to obtain supplies. A new prescription will be sent. Patient voiced understanding and agreement with plan. Patient's apnea severity and rationale for treatment to reduce apnea, improve sleep quality and reduce cardiovascular and cerebrovascular events was reviewed. I also reviewed the benefit of consistent device use of CPAP for hypertension and cardiac disease. Patient was encouraged to try to lose weight for their overall health and to reduce apneas. * Continue auto CPAP pressure at 12-17 cmH2O * Update supplies * Notify me if snoring with mask or feeling that the pressure is too much or too little * Attempt to lose weight * Call this office if any problems using CPAP * Return for follow up in 1 year, or sooner if concerns arise Counseling Topics: Spare mask, Weight loss health impact Visit Type: Telehealth Video Video Type: Doximity Patient Location: Home Location of Provider: Office Patient agrees and consents to this telehealth visit type: Yes Patient agrees to have their insurance billed: Yes Time Spent with Patient (minutes): 21 Provider Statement: I spent 100% of the Telehealth Video Call with the patient with greater than 50% spent counseling the patient and coordination of care.
== END 2021-10-24 14:15 | disposition home or self-care (01) ==
LOC: SC 14:14
PROVIDERS: ATTEND Nurse Practitioner Family
DX: G47.33 Obstructive sleep apnea (adult) (pediatric) (principal)
CPT/HCPCS: 99213; G0463; 99212

== ENCOUNTER 2021-11-18 08:21 | Outpatient (CLI) | payer MEDICARE, OTHER ==
[2021-11-18 11:34] LABS: BASOPHILS # (AUTO) 0.1 10^3/uL (0.0-0.1); BASOPHILS % (AUTO) 0.9 %; EOSINOPHILS # (AUTO) 0.4 10^3/uL (0.0-0.7); EOSINOPHILS % (AUTO) 4.7 %; HCT - HEMATOCRIT 47.4 % (42.0-52.0); HGB - HEMOGLOBIN 15.7 g/dL (14.0-18.0); LYMPHOCYTES # (AUTO) 2.9 10^3/uL (1.5-3.5); LYMPHOCYTES % (AUTO) 36.3 %; MEAN CORPUSCULAR HEMOGLOBIN 31.5 pg (27.0-31.0); MEAN CORPUSCULAR HGB CONC 33.1 g/dL (32.0-36.0); MEAN CORPUSCULAR VOLUME 95.2 fL (80.0-94.0); MEAN PLATELET VOLUME 10.8 fL (7.4-11.4); MONOCYTES # (AUTO) 0.8 10^3/uL (0.0-1.0); MONOCYTES % (AUTO) 10.4 %; NEUTROPHILS # (AUTO) 3.7 10^3/uL (1.5-6.6); NEUTROPHILS % (AUTO) 47.4 %; PLT - PLATELET COUNT 260 10^3/uL (130-450); RED BLOOD COUNT 4.98 10^6/uL (4.70-6.10); RED CELL DISTRIBUTION WIDTH 14.8 % (12.0-15.0); WHITE BLOOD COUNT 7.9 x10^3/uL (4.8-10.8)
[2021-11-18 12:05] LABS: ALBUMIN 4.4 g/dL (3.2-5.5); ALBUMIN/GLOBULIN RATIO 1.3 (1.0-2.2); ALKALINE PHOSPHATASE 58 IU/L (42-121); ALT ALANINE AMINOTRANSFERASE 11 IU/L (10-60); AST ASPARTATE AMINOTRANSFERASE 26 IU/L (10-42); BUN - BLOOD UREA NITROGEN 18 mg/dL (6-20); CALCIUM 9.5 mg/dL (8.5-10.3); CARBON DIOXIDE - CO2 28 mmol/L (21-32); CHLORIDE 102 mmol/L (101-111); CHOLESTEROL 180 mg/dL; CREATININE 1.1 mg/dL (0.6-1.2); GFR - MDRD 66 (>89); GLUCOSE 103 mg/dL (70-100); HDL CHOLESTEROL 60 mg/dL; LDL CHOLESTEROL,CALCULATED 106 mg/dL; LDL/HDL RATIO 1.8 (<3.6); POTASSIUM 4.7 mmol/L (3.5-5.0); SODIUM 136 mmol/L (135-145); TOTAL PROTEIN 7.7 g/dL (6.7-8.2); TRIGLYCERIDES 70 mg/dL; VLDL CHOLESTEROL 14 mg/dL
[2021-11-18 12:06] LABS: THYROID STIMULATING HORMONE 2.33 uIU/mL (0.34-5.60)
== END 2021-11-18 08:22 | disposition home or self-care (01) ==
LOC: LAB.N 08:21
PROVIDERS: ATTEND Family Medicine
DX: G20 Parkinson's disease (principal); I10 Essential (primary) hypertension; I71.2 Thoracic aortic aneurysm, without rupture; I47.1 Supraventricular tachycardia; E78.5 Hyperlipidemia, unspecified; I87.2 Venous insufficiency (chronic) (peripheral); E55.9 Vitamin D deficiency, unspecified
CPT/HCPCS: 36415; 80053; 80061; 82306; 83721; 84443; 85025

== ENCOUNTER 2024-01-12 08:08 | Outpatient (CLI) | payer MEDICARE, OTHER ==
[2024-01-12 11:58] LABS: BASOPHILS # (AUTO) 0.1 10^3/uL (0.0-0.1); BASOPHILS % (AUTO) 1.1 %; EOSINOPHILS # (AUTO) 0.5 10^3/uL (0.0-0.7); HCT - HEMATOCRIT 46.9 % (42.0-52.0); HGB - HEMOGLOBIN 15.1 g/dL (14.0-18.0); LYMPHOCYTES # (AUTO) 3.2 10^3/uL (1.5-3.5); LYMPHOCYTES % (AUTO) 40.1 %; MEAN CORPUSCULAR HEMOGLOBIN 31.2 pg (27.0-31.0); MEAN CORPUSCULAR HGB CONC 32.2 g/dL (32.0-36.0); MEAN CORPUSCULAR VOLUME 96.9 fL (80.0-94.0); MEAN PLATELET VOLUME 11.1 fL (7.4-11.4); MONOCYTES # (AUTO) 0.8 10^3/uL (0.0-1.0); MONOCYTES % (AUTO) 9.9 %; NEUTROPHILS # (AUTO) 3.4 10^3/uL (1.5-6.6); NEUTROPHILS % (AUTO) 42.8 %; PLT - PLATELET COUNT 237 10^3/uL (130-450); RED BLOOD COUNT 4.84 10^6/uL (4.70-6.10); RED CELL DISTRIBUTION WIDTH 14.8 % (12.0-15.0)
[2024-01-12 12:25] LABS: THYROID STIMULATING HORMONE 1.92 uIU/mL (0.34-5.60)
[2024-01-12 12:34] LABS: ALBUMIN 4.2 g/dL (3.2-5.5); ALBUMIN/GLOBULIN RATIO 1.4 (1.0-2.2); ALKALINE PHOSPHATASE 58 IU/L (42-121); ALT ALANINE AMINOTRANSFERASE 4 IU/L (10-60); AST ASPARTATE AMINOTRANSFERASE 14 IU/L (10-42); BILIRUBIN,TOTAL 0.8 mg/dL (0.2-1.0); BUN - BLOOD UREA NITROGEN 22 mg/dL (6-20); CALCIUM 10.1 mg/dL (8.5-10.3); CARBON DIOXIDE - CO2 29 mmol/L (21-32); CHLORIDE 103 mmol/L (101-111); CHOL/HDL RATIO 3.2 (<5.0); CHOLESTEROL 198 mg/dL; CREATININE 1.1 mg/dL (0.6-1.3); GFR - MDRD 65 (>89); GLUCOSE 99 mg/dL (74-104); HDL CHOLESTEROL 61 mg/dL; LDL CHOLESTEROL,CALCULATED 122 mg/dL; POTASSIUM 4.8 mmol/L (3.5-4.5); SODIUM 137 mmol/L (135-145); TOTAL PROTEIN 7.2 g/dL (6.4-8.9); TRIGLYCERIDES 75 mg/dL (48-352); VLDL CHOLESTEROL 15 mg/dL
== END 2024-01-12 08:09 | disposition home or self-care (01) ==
LOC: LAB.N 08:08
PROVIDERS: ATTEND Family Medicine
DX: Z12.5 Encounter for screening for malignant neoplasm of prostate (principal); E55.9 Vitamin D deficiency, unspecified; I42.9 Cardiomyopathy, unspecified; I10 Essential (primary) hypertension
CPT/HCPCS: 36415; 80053; 80061; 82306; 84443; 85025; G0103; 83721; 84153

== ENCOUNTER 2024-03-18 13:59 | Outpatient (CLI) | payer MEDICARE, OTHER ==
--- NOTE | 2024-03-18 14:46 | Sleep Patient Instructions ---
Sleep Center Visit Summary - Patient Visit Information Reason for Visit: Annual follow-up - Patient Instructions Additional Instructions: You will continue with CPAP therapy with pressure changed to 14-18 cmH2O. A supply prescription will be updated with your DME. I have added an order to update your PAP machine. Please call the office to schedule a compliance follow up once you get your new device. We encourage you to continue to try to lose weight. Please follow up with the sleep care office one month after obtaining new device. - Clinic Information Contact: [facility] [address] [place] [address] [email or web address] T: [phone]
--- NOTE | 2024-03-18 14:55 | SLEEP CARE CONSULTATION ---
Information from patient questionnaire entered by Avani Ohara. I have reviewed and concur with the information entered by Avani Ohara. This document represents the service I personally performed and the decisions made by me, Brittney Glez ARNP. History of Present Illness Service Date and Time: 03/18/2024 1359 Previous diagnosis: Severe, Obstructive Sleep Apnea-Hypopnea Syndrome AHI: 30.4 (in 2018) Reason for follow up: annual (LAST SEEN 10/2021) Equipment type: CPAP (SENIOR) Equipment obtained from: Other ([facility]; getting supplies) Mask style: Nasal pillows Mask brand: [employer] ([place]rev[place]) Backup mask available: Yes (old mask) Prior sleep studies: Yes Year and Where: 2018 - [facility] HPI additional information: ISABELL GUZMÁN was diagnosed to have severe, AHI 30.4, obstructive sleep ap kam-hypopnea syndrome and returned today for CPAP therapy annual follow-up. Sleep Study - Results Prior sleep studies: Yes Year and Where: 2018 - [facility] CPAP Compliance Data - Data Reviewed with Patient Average duration of nightly device use: 3 HRS 33 MINS 22 SECS Compliance rate %: 33.3 (12/17/23-03/15/24; 68/90 days used (75.6%)) Current pressure setting (cmH2O): 12-17 (avg 14.2, max 16) Average residual AHI: 8.5 Central apnea: 2 Obstructive apnea: 4 Hypopnea: 2.5 Average large leak: 36 secs Compliance data discussion: He says he will get out of bed after the 3.5 hours and not able to go back to sleep. His machine is now making a noise that gets louder as the pressure increases, this will also wake him up. Subjective Missed days of use due to: reports: travel, other (only sleeps 3.5 hours) Patient concerns: reports: mask leak noise, dry mouth, nose, throat. denies: aerophagia, mask discomfort, air blowing in eyes, condensation in mask/hose, dick al congestion, epistaxis Observed to snore while using device: No Current pressure setting perceived as: comfortable On therapy, patient: reports: sleeping better, awakening more refreshed, being more awake and alert during the day, more rested overall. denies: drowsiness while driving Initial [place] Sleepiness Scale score: 9 (in 2018) Current [place] Sleepiness Scale score: 9 (03/18/24) Allergies and Home Medications Known drug allergies: No Drug allergies reviewed: Yes Home medication list reviewed: Yes (no changes) Allergy and home medication list: Allergies No Known Drug Allergies Allergy (Verified 03/16/24 16:31) Review of Systems Review of systems same as previous: No (PARKINSONS) Physical Exam Vital signs obtained and entered by: AVANI Duncan MA Blood Pressure: 140/73 (LEFT ARM) Cuff size: long Heart Rate: 56 O2 Saturation: 95 Height: 6 ft Weight: 225 lb 3.2 oz Body Mass Index: 30.5 BMI Classification: Obese Impression and Plan 1. Obstructive Sleep Apnea-Hypopnea Syndrome, severe, with poor treatment comp liance and fair apnea control with elevated residual AHI. On CPAP therapy, the patient has better sleep quality and is more rested overall. His compliance is affected because he only sleeps 3.5 hours nightly on average. His comes to bed after he has been sleeping for 3.5 hours this will wake him up. He feels rested and just gets up the the day. I advised him that he needs to try to increase his compliance but also that short sleep does affect his health and he should try to get more sleep, recommend at least 6.5-7 hours nightly. He voiced understanding. He has a Dreamstation 2 that he received as replacement for machine that he obtained in 2018. This machine is now making louder noises when the pressure is ramping up. The patients CPAP is over 5 years old and of reasonable use. In addition, it is starting to make louder noise, a sign of malfunction. Thus, the CPAP will be updated. The new CPAPs also have a better humidity system which could assist control of patients dryness symptoms. A DWO prescription will be made. Compliance guidelines for new device and follow up discussed. His residual AHI is elevated. The patients pressure will be changed to autoCPAP 14-18 cmH20 for elevation of residual AHI. Patient advised to contact me if pressure change is uncomfortable so that it can be adjusted. Goals for apnea control discussed. Patient's apnea severity and rationale for treatment to reduce apnea, improve sleep quality and reduce cardiovascular and cerebrovascular events was reviewed. I also reviewed the benefit of consistent device use of CPAP for hypertension, cardiac disease. 2. Obesity, unspecified. Currently patients BMI is 30.5. Obesity increases the risk of apnea, CPAP pressure requirements and overall health risks especially cardiovascular and diabetes. Thus patient is advised to lose weight. * Change auto CPAP pressure to 14-18 cmH2O * Update machine * Update supply prescription * Notify me if snoring with mask or feeling that the pressure is too much or too little * Attempt to lose weight * Call this office if any problems using CPAP * Return for follow up one month after obtaining new device, or sooner if concerns arise Adjust device pressure to (cmH2O): 14-18 Counseling Topics: Spare mask, Weight loss health impact Prescriptions: Auto CPAP, Device supplies Plan: Update CPAP and compliance follow up Visit Type: In Office Time Spent with Patient (minutes): 27 Provider Statement: I spent 100% of the Face to Face Visit with the patient with greater than 50% spent counseling the patient and coordination of care.
[2024-03-18 15:04] VITALS: BP 140/73; O2SAT 95
== END 2024-03-18 14:00 | disposition home or self-care (01) ==
LOC: SC 13:59
PROVIDERS: ATTEND Nurse Practitioner Family
DX: G47.33 Obstructive sleep apnea (adult) (pediatric) (principal); E66.9 Obesity, unspecified; Z68.30 Body mass index [BMI] 30.0-30.9, adult
CPT/HCPCS: 99213; G0463; 99212

== ENCOUNTER 2024-05-03 17:34 | Outpatient (CLI) | payer MEDICARE, OTHER | END 2024-05-03 17:35 | disposition short-term general hospital (02) | LOC: EMS 17:34 | DX: R07.89 Other chest pain (principal) | CPT/HCPCS: A0425; A0427 ==

== ENCOUNTER 2024-05-26 07:03 | Outpatient (CLI) | payer MEDICARE, OTHER ==
[2024-05-26 12:34] LABS: ALBUMIN 4.1 g/dL (3.2-5.5); ALBUMIN/GLOBULIN RATIO 1.3 (1.0-2.2); BILIRUBIN,TOTAL 0.6 mg/dL (0.2-1.0); CALCIUM 9.4 mg/dL (8.5-10.3); POTASSIUM 4.2 mmol/L (3.5-4.5); TOTAL PROTEIN 7.2 g/dL (6.4-8.9)
[2024-05-27 02:08] LABS: HBsAG SCREEN Negative (Negative); HEPATITIS B SURFACE AB QUANT <3.5 mIU/mL (Immunity>10)
[2024-05-28 00:08] LABS: HCV AB Non Reactive (Non Reactive)
== END 2024-05-26 07:04 | disposition home or self-care (01) ==
LOC: LAB.N 07:03
PROVIDERS: ATTEND Nurse Practitioner Family
DX: R74.8 Abnormal levels of other serum enzymes (principal)
CPT/HCPCS: 36415; 80053; 86317; 86704; 86803; 87340; 87522